=== PATIENT | female | born 1980 | race American Indian/Alaskan Native ===

== ENCOUNTER 2017-05-17 17:56 | Emergency (ER) | payer MEDICAID ==
[2017-05-17] MEDS ORDERED: XYLOCAINE 2% INFILTRATI ONE (22:00)
--- NOTE | 2017-05-17 22:14 | Emergency Department Report ---
- General Chief complaint: Skin/Abscess/Foreign Body Stated complaint: ABSCESS BIKINI LINE AREA Time Seen by Provider: 05/17/17 21:53 Source: patient Mode of arrival: Ambulatory Limitations: No Limitations - History of Present Illness complaint: abscess/boil -: Gradual (Since last . She thought it was an ingroin hair. Located at the left groin area) Associated symptoms: denies other symptoms Treatments Prior to Arrival: attempted to drain pus at - Related Data Home Medications Medication Instructions Recorded Confirmed Last Taken Ranitidine HCl [Ranitidine 300mg 1 tab PO DAILY 10/14/14 06/20/15 1 Week Ago Cap] ~01/16/15 Previous Rx's Medication Instructions Recorded Last Taken Type Ferrous Sulfate [Feosol 325 MG tab] 325 mg PO BID #60 tablet 01/25/15 Unknown Rx Labetalol [Normodyne TAB] 100 mg PO BID #60 tablet 01/25/15 Unknown Rx HYDROcodone/APAP 5-325 [[place] 1 each PO Q6HR PRN #30 tablet 06/20/15 Unknown Rx 5/325] Ibuprofen [Motrin 600 MG tab] 600 mg PO Q8H PRN #30 tablet 06/20/15 Unknown Rx Multivitamin with Iron 1 each PO DAILY #30 tablet 06/20/15 Unknown Rx [Multivitamins with Iron] Gentamicin 0.3% Ophth Soln 2 drops OP Q8H #1 bottle 11/27/15 Unknown Rx Sulfamethoxazole/Trimethoprim 1 each PO BID #20 tablet 05/17/17 Unknown Rx [Bactrim DS TAB] Allergies Allergy/AdvReac Type Severity Reaction Status Date / Time cephalexin monohydrate Allergy Rash Verified 01/10/15 16:42 [From Keflex] latex Allergy Itching Verified 10/26/14 07:16 Abscess Boil HPI - HPI Chief Complaint: Skin/Abscess/Foreign Body Stated Complaint: ABSCESS BIKINI LINE AREA Time Seen by Provider: 05/17/17 21:53 History: Yes Pain, Yes Purulent Drainage, Yes Previous History (small ones), No Fever, No Numbness, No Foreign Body, No Insect Bite Home Medications: Home Medications Medication Instructions Recorded Confirmed Last Taken Ranitidine HCl [Ranitidine 300mg 1 tab PO DAILY 10/14/14 06/20/15 1 Week Ago Cap] ~01/16/15 Previous Rx's Medication Instructions Recorded Last Taken Type Ferrous Sulfate [Feosol 325 MG tab] 325 mg PO BID #60 tablet 01/25/15 Unknown Rx Labetalol [Normodyne TAB] 100 mg PO BID #60 tablet 01/25/15 Unknown Rx HYDROcodone/APAP 5-325 [[place] 1 each PO Q6HR PRN #30 tablet 06/20/15 Unknown Rx 5/325] Ibuprofen [Motrin 600 MG tab] 600 mg PO Q8H PRN #30 tablet 06/20/15 Unknown Rx Multivitamin with Iron 1 each PO DAILY #30 tablet 06/20/15 Unknown Rx [Multivitamins with Iron] Gentamicin 0.3% Ophth Soln 2 drops OP Q8H #1 bottle 11/27/15 Unknown Rx Sulfamethoxazole/Trimethoprim 1 each PO BID #20 tablet 05/17/17 Unknown Rx [Bactrim DS TAB] Allergies/Adverse Reactions: Allergies Allergy/AdvReac Type Severity Reaction Status Date / Time cephalexin monohydrate Allergy Rash Verified 01/10/15 16:42 [From Keflex] latex Allergy Itching Verified 10/26/14 07:16 ED Review of Systems ROS: Stated complaint: ABSCESS BIKINI LINE AREA Other details as noted in HPI Constitutional: denies: chills, fever Eyes: denies: eye pain, eye discharge, vision change ENT: denies: ear pain, throat pain Respiratory: denies: cough, shortness of breath, wheezing Cardiovascular: denies: chest pain, palpitations Endocrine: no symptoms reported Gastrointestinal: denies: abdominal pain, nausea, diarrhea Genitourinary: denies: urgency, dysuria, discharge Musculoskeletal: denies: back pain, joint swelling, arthralgia Skin: as per HPI, lesions. denies: rash Neurological: denies: headache, weakness, paresthesias Psychiatric: denies: anxiety, depression Hematological/Lymphatic: denies: easy bleeding, easy bruising ED Past Medical Hx - Past Medical History Previous Medical History?: Yes Hx Hypertension: No Hx Heart Attack/AMI: No Hx Congestive Heart Failure: No Hx Diabetes: No Hx Deep Vein Thrombosis: No Hx Renal Disease: No Hx Sickle Cell Disease: No Hx Headaches / Migraines: Yes (MIGRAINES) Hx Seizures: No Hx Asthma: No Hx COPD: No Hx HIV: No - Surgical History Past Surgical History?: Yes Hx Cholecystectomy: Yes - Social History Smoking Status: Former Smoker Substance Use Type: None - Medications Home Medications: Home Medications Medication Instructions Recorded Confirmed Last Taken Type Ranitidine HCl [Ranitidine 300mg 1 tab PO DAILY 10/14/14 06/20/15 1 Week Ago History Cap] ~01/16/15 Ferrous Sulfate [Feosol 325 MG tab] 325 mg PO BID #60 tablet 01/25/15 06/20/15 Unknown Rx Labetalol [Normodyne TAB] 100 mg PO BID #60 tablet 01/25/15 06/20/15 Unknown Rx HYDROcodone/APAP 5-325 [[place] 1 each PO Q6HR PRN #30 tablet 06/20/15 Unknown Rx 5/325] Ibuprofen [Motrin 600 MG tab] 600 mg PO Q8H PRN #30 tablet 06/20/15 Unknown Rx Multivitamin with Iron 1 each PO DAILY #30 tablet 06/20/15 Unknown Rx [Multivitamins with Iron] Gentamicin 0.3% Ophth Soln 2 drops OP Q8H #1 bottle 11/27/15 Unknown Rx Sulfamethoxazole/Trimethoprim 1 each PO BID #20 tablet 05/17/17 Unknown Rx [Bactrim DS TAB] ED Physical Exam - General Limitations: No Limitations General appearance: alert, in no apparent distress - Head Head exam: Present: atraumatic, normocephalic - Eye Eye exam: Present: normal appearance - ENT ENT exam: Present: mucous membranes moist - Neck Neck exam: Present: normal inspection - Respiratory Respiratory exam: Present: normal lung sounds bilaterally. Absent: respiratory distress - Cardiovascular Cardiovascular Exam: Present: regular rate, normal rhythm. Absent: systolic murmur, diastolic murmur, rubs, gallop - GI/Abdominal GI/Abdominal exam: Present: soft, normal bowel sounds - Extremities Exam Extremities exam: Present: normal inspection - Back Exam Back exam: Present: normal inspection - Neurological Exam Neurological exam: Present: alert, oriented X3 - Psychiatric Psychiatric exam: Present: normal affect, normal mood - Skin Skin exam: Present: warm, dry, intact, normal color. Absent: rash - Expanded Skin Exam Expanded Type of lesion: Present: abscess (at the left groin, 3 cm induration, central head, tender, fluctuation sign positive.) ED Course Vital Signs 05/17/17 18:07 Temperature 98.6 F Pulse Rate 96 H Respiratory 16 Rate O2 Sat by Pulse 100 Oximetry - I & D Left Groin Site: left groin Blade Size: 11 I & D Procedure: betadine prep, sterile drapes applied, sterile dressing applied , no gauze wick placed Progress: Wound culture obtained, purulent greenish pus drained. Procedure well tolerated. Critical care attestation.: If time is entered above; I have spent that time in minutes in the direct care of this critically ill patient, excluding procedure time. ED Disposition Clinical Impression: Abscess Disposition: DC- TO HOME OR SELFCARE Is pt being admited?: No Does the pt Need Aspirin: No Condition: Good Instructions: Wound Infection (ED) Prescriptions: Sulfamethoxazole/Trimethoprim [Bactrim DS TAB] 1 each PO BID #20 tablet Referrals: JORI REINA MD [Primary Care Provider] - 3-5 Days Time of Disposition: 22:20
[2017-05-17 22:52] VITALS: BP 129/73
== END 2017-05-17 22:52 | disposition home or self-care (01) ==
LOC: ED 17:56
DX: L02.214 Cutaneous abscess of groin (principal); G43.909 Migraine, unspecified, not intractable, without status migrainosus; Z90.49 Acquired absence of other specified parts of digestive tract; Z87.891 Personal history of nicotine dependence; Z88.1 Allergy status to other antibiotic agents; Z91.040 Latex allergy status
CPT/HCPCS: 87116

== ENCOUNTER 2017-05-29 06:15 | Emergency (ER) | payer SELFPAY ==
[2017-05-29] MEDS ORDERED: DILAUDID ONE (06:45)
[2017-05-29] MEDS ORDERED: ZOFRAN ONE (06:49)
[2017-05-29] MEDS ORDERED: DILAUDID IV ONE ×2 (06:56→11:05)
[2017-05-29] MEDS ORDERED: NACL 0.9% 1000 ML 1,000 ML IV ONE (06:56)
[2017-05-29] MEDS ORDERED: SUBLIMAZE IV ONE (06:56)
[2017-05-29] MEDS ORDERED: ZOFRAN IV ONE (06:56)
[2017-05-29] MEDS ORDERED: SUBLIMAZE ONE (06:56)
--- NOTE | 2017-05-29 06:57 | Emergency Department Report ---
ED General Adult HPI - General Chief complaint: Abdominal Pain Stated complaint: VAGINAL BLEEDING Time Seen by Provider: 05/29/17 06:45 Source: patient, family, RN notes reviewed, old records reviewed Mode of arrival: Ambulatory Limitations: No Limitations - History of Present Illness Initial comments: This is a 37-year-old female. The patient has been previously evaluated by me in 2015 for ectopic . She reports that she is 8, para 4. Last menstrual period was mid-March. Surgical history includes right-sided ectopic removal in 2015, hernia repair, cholecystectomy. Patient presents to the ER with a complaint of diffuse abdominal pain. It is sharp. It increases with palpation. It decreases with rest. Patient reports she was seen at another hospital, [facility] and thinks that she was diagnosed with a "in the left tube, and inside the uterus." Patient denies in vitro fertilization, and patient further indicates that she does not have a private system specialist at this time. -: Gradual, hour(s) Location: abdomen Severity scale (0 -10): 10 Quality: stabbing, sharp Consistency: constant Improves with: medication Worsens with: movement Associated Symptoms: loss of appetite, malaise, nausea/vomiting, weakness. denies: chest pain, cough, headaches - Related Data Home Medications Medication Instructions Recorded Confirmed Last Taken Ranitidine HCl [Ranitidine 300mg 1 tab PO DAILY 10/14/14 06/20/15 1 Week Ago Cap] ~01/16/15 Previous Rx's Medication Instructions Recorded Last Taken Type Ferrous Sulfate [Feosol 325 MG tab] 325 mg PO BID #60 tablet 01/25/15 Unknown Rx Labetalol [Normodyne TAB] 100 mg PO BID #60 tablet 01/25/15 Unknown Rx HYDROcodone/APAP 5-325 [[place] 1 each PO Q6HR PRN #30 tablet 06/20/15 Unknown Rx 5/325] Ibuprofen [Motrin 600 MG tab] 600 mg PO Q8H PRN #30 tablet 06/20/15 Unknown Rx Multivitamin with Iron 1 each PO DAILY #30 tablet 06/20/15 Unknown Rx [Multivitamins with Iron] Gentamicin 0.3% Ophth Soln 2 drops OP Q8H #1 bottle 11/27/15 Unknown Rx Sulfamethoxazole/Trimethoprim 1 each PO BID #20 tablet 05/17/17 Unknown Rx [Bactrim DS TAB] Allergies Allergy/AdvReac Type Severity Reaction Status Date / Time cephalexin monohydrate Allergy Rash Verified 01/10/15 16:42 [From Keflex] latex Allergy Itching Verified 10/26/14 07:16 ED Review of Systems ROS: Stated complaint: VAGINAL BLEEDING Other details as noted in HPI Constitutional: denies: fever Eyes: denies: vision change ENT: denies: epistaxis Respiratory: denies: cough Cardiovascular: denies: chest pain Gastrointestinal: abdominal pain Genitourinary: denies: dysuria Musculoskeletal: as per HPI Skin: as per HPI Neurological: as per HPI, weakness Psychiatric: anxiety ED Past Medical Hx - Past Medical History Previous Medical History?: Yes Hx Hypertension: No Hx Heart Attack/AMI: No Hx Congestive Heart Failure: No Hx Diabetes: No Hx Deep Vein Thrombosis: No Hx Renal Disease: No Hx Sickle Cell Disease: No Hx Headaches / Migraines: Yes (MIGRAINES) Hx Seizures: No Hx Asthma: No Hx COPD: No Hx HIV: No - Surgical History Past Surgical History?: Yes Hx Cholecystectomy: Yes - Social History Smoking Status: Former Smoker Substance Use Type: None - Medications Home Medications: Home Medications Medication Instructions Recorded Confirmed Last Taken Type Ranitidine HCl [Ranitidine 300mg 1 tab PO DAILY 10/14/14 06/20/15 1 Week Ago History Cap] ~01/16/15 Ferrous Sulfate [Feosol 325 MG tab] 325 mg PO BID #60 tablet 01/25/15 06/20/15 Unknown Rx Labetalol [Normodyne TAB] 100 mg PO BID #60 tablet 01/25/15 06/20/15 Unknown Rx HYDROcodone/APAP 5-325 [[place] 1 each PO Q6HR PRN #30 tablet 06/20/15 Unknown Rx 5/325] Ibuprofen [Motrin 600 MG tab] 600 mg PO Q8H PRN #30 tablet 06/20/15 Unknown Rx Multivitamin with Iron 1 each PO DAILY #30 tablet 06/20/15 Unknown Rx [Multivitamins with Iron] Gentamicin 0.3% Ophth Soln 2 drops OP Q8H #1 bottle 11/27/15 Unknown Rx Sulfamethoxazole/Trimethoprim 1 each PO BID #20 tablet 05/17/17 Unknown Rx [Bactrim DS TAB] ED Physical Exam - General Limitations: No Limitations General appearance: alert, in distress - Head Head exam: Present: atraumatic, normocephalic - Eye Eye exam: Present: normal appearance, EOMI - ENT ENT exam: Present: normal exam, normal orophraynx, mucous membranes moist - Neck Neck exam: Present: normal inspection, full ROM - Respiratory Respiratory exam: Present: normal lung sounds bilaterally. Absent: respiratory distress - Cardiovascular Cardiovascular Exam: Present: normal rhythm, tachycardia, normal heart sounds. Absent: systolic murmur, diastolic murmur, rubs, gallop - GI/Abdominal GI/Abdominal exam: Present: soft, tenderness, normal bowel sounds. Absent: distended, rigid - Extremities Exam Extremities exam: Present: normal inspection, full ROM. Absent: calf tenderness - Back Exam Back exam: Present: normal inspection, full ROM. Absent: tenderness, CVA tenderness (R), paraspinal tenderness, vertebral tenderness - Neurological Exam Neurological exam: Present: alert, oriented X3, other (Extraocular movements intact. Tongue midline. No facial droop. Facial sensation intact to light touch in the V1, V2, V3 distribution bilaterally. 5 and 5 strength in 4 extremities.. Sensation is intact to light touch in 4 extremities.). Absent: motor sensory deficit - Psychiatric Psychiatric exam: Present: anxious - Skin Skin exam: Present: warm, dry, intact, normal color. Absent: rash ED Course Vital Signs 05/29/17 05/29/17 05/29/17 06:18 06:21 06:32 Temperature 98.1 F 98.1 F Pulse Rate 109 H 110 H Respiratory 20 22 Rate Blood Pressure 156/96 Blood Pressure 156/96 [Right] O2 Sat by Pulse 100 100 100 Oximetry 05/29/17 05/29/17 05/29/17 06:37 06:40 06:45 Temperature 97.7 F Pulse Rate 101 H Respiratory 18 22 Rate Blood Pressure 138/94 Blood Pressure 138/94 [Right] O2 Sat by Pulse 100 100 98 Oximetry 05/29/17 05/29/17 05/29/17 07:00 07:39 07:45 Temperature Pulse Rate 100 H 91 H 88 Respiratory 10 L 16 17 Rate Blood Pressure 138/94 138/94 138/94 Blood Pressure [Right] O2 Sat by Pulse 99 100 Oximetry 05/29/17 05/29/17 05/29/17 08:00 08:04 08:15 Temperature 98.0 F Pulse Rate 65 84 75 Respiratory 16 16 15 Rate Blood Pressure 137/74 137/74 Blood Pressure 132/75 [Right] O2 Sat by Pulse 99 100 100 Oximetry 05/29/17 05/29/17 05/29/17 08:30 08:45 09:01 Temperature Pulse Rate 87 79 63 Respiratory 14 12 14 Rate Blood Pressure 124/82 124/82 107/62 Blood Pressure [Right] O2 Sat by Pulse 99 99 99 Oximetry 05/29/17 05/29/17 05/29/17 09:15 09:30 09:45 Temperature Pulse Rate 67 76 78 Respiratory 16 14 14 Rate Blood Pressure 107/62 108/62 108/62 Blood Pressure [Right] O2 Sat by Pulse 99 99 100 Oximetry 05/29/17 05/29/17 05/29/17 10:00 10:15 10:31 Temperature Pulse Rate 73 81 73 Respiratory 12 11 L 16 Rate Blood Pressure 108/63 108/63 108/63 Blood Pressure [Right] O2 Sat by Pulse 99 100 99 Oximetry 05/29/17 11:43 Temperature Pulse Rate 70 Respiratory 15 Rate Blood Pressure Blood Pressure 108/63 [Right] O2 Sat by Pulse 100 Oximetry - Reevaluation(s) Reevaluation #1: 05/29/17 07:29 Differential diagnosis, including but not limited to: Peritonitis, ruptured ectopic , ovarian cyst Assessment and plan: 37-year-old female with history of ectopic , hemoperitoneum, with diffuse abdominal tenderness, concerning for recurrent ectopic . She is afebrile and hemodynamically stable with tachycardia. Bedside left upper quadrant and right upper quadrant ultrasound did not demonstrate obvious free fluid in the aforementioned compartments. An emergent gynecologic ultrasound is performed, we will attempt to obtain patient' s old medical records from prior facility, and I will discussed with gynecology. Patient made nothing by mouth, 2 large-bore IVs have been ordered, IV fluids have been ordered, in conjunction with pain medication and nausea medication. Reevaluation #2: 05/29/17 08:05 Ultrasound demonstrates an intrauterine , and a heterogeneous complex right-sided mass, 5.4 x 2.5 x 3.6 cm, may represent heterotopic . A small subchronic hemorrhage is identified as well. Stat gynecology consult has been placed, I am awaiting callback. Reevaluation #3: 05/29/17 09:27 Dr. Villegas has evaluated the patient, she is awaiting medical records from prior facility 05/29/17 10:35 Reevaluation #4: 05/29/17 09:52 Medical records from other hospital reviewed. Patient had a CT scan of the abdomen and pelvis with IV contrast, which demonstrated a normal appendix, and a 1.6 x 1.3 cm lesion in the right adnexa, suggestive of hemorrhagic ovarian cyst. In addition, the patient had a transvaginal ultrasound was which demonstrated an intrauterine , and a right-sided adnexal mass, with normal ovarian flow. Case is rediscussed with gynecology, Dr. Villegas, she states that heterotopic is very unlikely, and that hemorrhagic ovarian cyst is much more likely. In addition, it was documented that the patient was supposed to follow- up in 24 hours and did not do so. Reevaluation #5: 05/29/17 10:34 Patient seen in final consultation and conjunction with Dr. Villegas. She does not believe the patient's presentation requires either admission or laparoscopy. The patient's tenderness is improved and she is now able to tolerate liquid feeds. Dr. Villegas indicates the patient will follow-up with Dr. Shira Mcbride on Monday, in 2 days for repeat ultrasound and quantitative hCG. She has also written the patient for prescription for Percocet, Colace, Zofran. Extensive discussion was had with the patient regarding the importance of close outpatient follow-up. - Consultations Consultation #1: 05/29/17 08:21 Case is discussed with gynecology, Dr. Villegas, she is going to come by and see/ evaluate the patient. ED Medical Decision Making - Lab Data Result diagrams: 05/29/17 06:40 05/29/17 06:40 Vital Signs 05/29/17 05/29/17 05/29/17 06:18 06:21 06:32 Temperature 98.1 F 98.1 F Pulse Rate 109 H 110 H Respiratory 20 22 Rate Blood Pressure 156/96 Blood Pressure 156/96 [Right] O2 Sat by Pulse 100 100 100 Oximetry 05/29/17 05/29/17 05/29/17 06:37 06:40 06:45 Temperature 97.7 F Pulse Rate 101 H Respiratory 18 22 Rate Blood Pressure 138/94 Blood Pressure 138/94 [Right] O2 Sat by Pulse 100 100 98 Oximetry 05/29/17 07:00 Temperature Pulse Rate 100 H Respiratory 10 L Rate Blood Pressure 138/94 Blood Pressure [Right] O2 Sat by Pulse Oximetry Lab Results 05/29/17 05/29/17 Range/Units 06:40 06:40 WBC 9.1 (4.5-11.0) K/mm3 RBC 4.07 (3.65-5.03) M/mm3 Hgb 13.0 (10.1-14.3) gm/dl Hct 37.5 (30.3-42.9) % MCV 92 (79-97) fl MCH 32 (28-32) pg MCHC 35 H (30-34) % RDW 13.4 (13.2-15.2) % Plt Count 406 (140-440) K/mm3 Lymph % (Auto) 36.1 H (13.4-35.0) % [place] % (Auto) 5.3 (0.0-7.3) % Eos % (Auto) 0.2 (0.0-4.3) % Baso % (Auto) 0.2 (0.0-1.8) % Lymph # 3.3 (1.2-5.4) K/mm3 [place] # 0.5 (0.0-0.8) K/mm3 Eos # 0.0 (0.0-0.4) K/mm3 Baso # 0.0 (0.0-0.1) K/mm3 Seg Neutrophils % 58.2 (40.0-70.0) % Seg Neutrophils # 5.3 (1.8-7.7) K/mm3 PT 13.1 (12.2-14.9) Sec. INR 0.95 (0.87-1.13) APTT 36.9 H (24.2-36.6) Sec. Critical care attestation.: If time is entered above; I have spent that time in minutes in the direct care of this critically ill patient, excluding procedure time. ED Disposition Clinical Impression: Acute abdominal pain Disposition: DC- TO HOME OR SELFCARE Is pt being admited?: No Does the pt Need Aspirin: No Condition: Stable Instructions: Abdominal Pain (ED) Additional Instructions: Take the medications as directed/prescribed. Follow up with Dr. Shivam Mcbride, first thing Monday morning, in 2 days, for repeat ultrasound and blood tests. Return to the ER right away with new pain, worsening pain, migration of pain, fevers, chills, lethargy, irritability, productive vomiting, confusion, change in mental status, inability tolerate liquid feeds, loss of consciousness. Referrals: PRIMARY CARE, [Primary Care Provider] - 3-5 Days SHIRA MCBRIDE MD [Staff Physician] - 3-5 Days Forms: Work/School Release Form(ED)
[2017-05-29 07:06] LABS: Basophils % (Auto) 0.2 % (0.0-1.8); Eosinophils % (Auto) 0.2 % (0.0-4.3); Hematocrit 37.5 % (30.3-42.9); Mean Corpuscular HGB Conc 35 % (30-34); Mean Corpuscular Hemoglobin 32 pg (28-32); Mean Corpuscular Volume 92 fl (79-97); Platelet Count 406 K/mm3 (140-440); Red Blood Count 4.07 M/mm3 (3.65-5.03); Red Cell Distribution Width 13.4 % (13.2-15.2); White Blood Count 9.1 K/mm3 (4.5-11.0)
[2017-05-29 07:16] LABS: INR 0.95 (0.87-1.13)
[2017-05-29 07:17] LABS: Partial Thromboplastin Time 36.9 Sec. (24.2-36.6)
[2017-05-29 07:34] LABS: Alanine Aminotransferase 9 units/L (7-56); Albumin 4.4 g/dL (3.9-5); Albumin/Globulin Ratio 1.3 %; Alkaline Phosphatase 45 units/L (35-129); Anion Gap 22 mmol/L; BUN/Creatinine Ratio 20; Blood Urea Nitrogen 12 mg/dL (7-17); Calcium 9.4 mg/dL (8.4-10.2); Carbon Dioxide 20 mmol/L (22-30); Chloride 99.9 mmol/L (98-107); Glucose 93 mg/dL (65-100); Lipase 34 units/L (13-60); Potassium 3.8 mmol/L (3.6-5.0); Sodium 138 mmol/L (137-145); Total Protein 7.9 g/dL (6.3-8.2)
--- NOTE | 2017-05-29 07:51 | Ultrasound Report ---
ULTRASOUND OB LESS THAN 14 WEEKS FETUS ULTRASOUND OB TRANSVAGINAL HISTORY: Abdominal pain during , 6 weeks gestation, history of heterotopic at outlying facility.. COMPARISON: No relevant comparisons at this facility. TECHNIQUE: Transabdominal and transvaginal ultrasound with color doppler interrogation. FINDINGS: Uterus: The uterus measures 7.6 x 5.2 x 4.5 cm. No uterine mass is appreciated. The uterus is anteverted. The cervix is unremarkable. Endometrium: An intrauterine gestational sac containing a pole and yolk sac is identified. Heart rate measures 150 beats per minute. [place]-rump length measures 1.1 cm which correlates with a 7 week, 2 day . A small subchorionic hemorrhage is identified. Right ovary: 2.0 x 1.9 x 1.8 cm. Adjacent to the right ovary, there is a heterogeneous complex appearing right adnexal mass measuring 5.4 x 2.5 x 3.6 cm. There is no discrete pole or heart tones in this area. The etiology of this is unclear. This could represent a heterotopic . Left ovary: 2.6 x 1.7 x 2.2 cm. No significant abnormality. No pelvic fluid or mass is identified. Normal color doppler interrogation. IMPRESSION: A viable intrauterine is identified as described above. There is a complex masslike lesion in the vicinity of the right fallopian tubules although no discrete gestational sac is demonstrated. A heterotopic cannot be excluded. Please correlate with the clinical presentation of the patient. Small subchorionic hemorrhage.
[2017-05-29 08:33] LABS: Bilirubin,Urine NEG (Negative); Blood,Urine MOD (Negative); Ketones,Urine NEG (Negative); Leukocyte Esterase,Urine MOD (Negative); Mucus,Urine FEW /HPF; Nitrite,Urine NEG (Negative); Protein,Urine <15 mg/dL mg/dL (Negative); Urobilinogen,Urine < 2.0 mg/dL (<2.0)
[2017-05-29] MEDS ORDERED: ROXICODONE PO ONE (09:51)
[2017-05-29] MEDS ORDERED: PERCOCET 5/325 PO ONE (09:52)
[2017-05-29 10:37] VITALS: BP 108/63
--- NOTE | 2017-05-29 12:07 | History and Physical Report ---
History of Present Illness Date of examination: 05/29/17 Date of admission: 05/27/17 Chief complaint: r sided abdominal pain History of present illness: This is a 37 yo LMP Mar or Apr unsure. Patient came in for abdominal pain in which she was seen at [facility] for same problem 5 days ago. She wasevaluated there and dx with IUP and ovarain cyst on the right. She states pain is 7/10 and was released home but did not take meds and didnot have Percocet filled as she has had prior meds and took only 2 tabs one on Monday and one on Mon. 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 She has some nausea and vomited several times. She denies any fever nor chills and no vaginal bleeding. This is a wanted . Past History Past Medical History: hypertension, GERD Past Surgical History: cholecystectomy, BATTERY CONTAINER FINISHING HAND/uterine surgery, other ( herniorophay ) BATTERY CONTAINER FINISHING HAND History: herpes Family/Genetic History: none Social history: no significant social history, . denies: smoking, alcohol abuse, prescription drug abuse - Obstetrical History : 6 Medications and Allergies Allergies Allergy/AdvReac Type Severity Reaction Status Date / Time cephalexin monohydrate Allergy Rash Verified 01/10/15 16:42 [From Keflex] latex Allergy Itching Verified 10/26/14 07:16 Home Medications Medication Instructions Recorded Confirmed Last Taken Type Ranitidine HCl [Ranitidine 300mg 1 tab PO DAILY 10/14/14 06/20/15 1 Week Ago History Cap] ~01/16/15 Ferrous Sulfate [Feosol 325 MG tab] 325 mg PO BID #60 tablet 01/25/15 06/20/15 Unknown Rx Labetalol [Normodyne TAB] 100 mg PO BID #60 tablet 01/25/15 06/20/15 Unknown Rx HYDROcodone/APAP 5-325 [[place] 1 each PO Q6HR PRN #30 tablet 06/20/15 Unknown Rx 5/325] Ibuprofen [Motrin 600 MG tab] 600 mg PO Q8H PRN #30 tablet 06/20/15 Unknown Rx Multivitamin with Iron 1 each PO DAILY #30 tablet 06/20/15 Unknown Rx [Multivitamins with Iron] Gentamicin 0.3% Ophth Soln 2 drops OP Q8H #1 bottle 11/27/15 Unknown Rx Sulfamethoxazole/Trimethoprim 1 each PO BID #20 tablet 05/17/17 Unknown Rx [Bactrim DS TAB] Review of Systems All systems: negative Gastrointestinal: abdominal pain, nausea Genitourinary: pelvic pain - Vital Signs Vital signs: Vital Signs Temp Pulse Resp BP Pulse Ox 98.1 F 109 H 20 156/96 100 05/29/17 06:18 05/29/17 06:18 05/29/17 06:18 05/29/17 06:18 05/29/17 06:18 Temp Pulse Resp BP Pulse Ox 98.0 F 70 15 108/63 100 05/29/17 08:04 05/29/17 11:43 05/29/17 11:43 05/29/17 11:43 05/29/17 11:43 - Physical Exam Breasts: Positive: deferred Cardiovascular: Regular rate, Normal S1 Lungs: Positive: Clear to auscultation, Normal air movement Abdomen: Positive: normal appearance, soft, distention, tenderness (right), normal bowel sounds. Negative: guarding, mass Vulva: both: normal Vagina: Positive: normal moisture Cervix: Negative: lesion Uterus: Positive: normal size, normal contour Adnexa: right: tenderness Anus/Rectum: Positive: normal perianal skin Extremities: Positive: normal Deep Tendon Reflex Grade: Normal +2 Results Result Diagrams: 05/29/17 06:40 05/29/17 06:40 Abnormal lab results 05/29/17 05/29/17 05/29/17 Range/Units 06:40 06:40 06:40 MCHC 35 H (30-34) % Lymph % (Auto) 36.1 H (13.4-35.0) % APTT (24.2-36.6) Sec. Carbon Dioxide 20 L (22-30) mmol/L Creatinine 0.6 L (0.7-1.2) mg/dL HCG, Quant 72103 H (0-4) mIU/mL Urine WBC (Auto) (0.0-6.0) /HPF 05/29/17 05/29/17 Range/Units 06:40 07:51 MCHC (30-34) % Lymph % (Auto) (13.4-35.0) % APTT 36.9 H (24.2-36.6) Sec. Carbon Dioxide (22-30) mmol/L Creatinine (0.7-1.2) mg/dL HCG, Quant (0-4) mIU/mL Urine WBC (Auto) 27.0 H (0.0-6.0) /HPF All other labs normal. Assessment and Plan A/P HD#! ABdominal pain , IUP 7 weeks Right ovaraian hemorrhagic cyst ( doubt heterotpic ) reviewed US today and US from [facility] including CT scan Wanted Stable hemodynamically ( wbc, h/h, clinically ) recommended following closely appt scheudled on Mon with Dr. Mcbride ( previously had appt for next week) d/c home with percocet, colace and zofran any changes which include but not limited to bleeding, pain despite narcotics, or fever, chills, vomited [facility] Patient counseled for 30min and agree with plan Discused importance ad imperativeness to f/u
== END 2017-05-29 11:43 | disposition home or self-care (01) ==
LOC: ED 06:15
DX: O26.891 Other specified pregnancy related conditions, first trimester (principal); R10.84 Generalized abdominal pain; G43.909 Migraine, unspecified, not intractable, without status migrainosus; Z3A.01 Less than 8 weeks gestation of pregnancy; Z87.891 Personal history of nicotine dependence; Z90.49 Acquired absence of other specified parts of digestive tract; Z91.040 Latex allergy status; Z88.1 Allergy status to other antibiotic agents
CPT/HCPCS: 36415; 76801; 76817; 80053; 81001; 83690; 84702; 84703; 85025; 85610; 85730; 86850; 86900; 86901; 96361; 96374; 96375; 96376; 99284; J1170; J2405; J3010; J7030

== ENCOUNTER 2017-05-31 10:31 | Inpatient (IN) | payer MEDICAID ==
[2017-05-31] MEDS ORDERED: PERCOCET 5/325 PO PRN (11:09)
[2017-05-31] MEDS ORDERED: ZOFRAN IV PRN (11:09)
[2017-05-31 11:56] LABS: Eosinophils % (Auto) 0.1 % (0.0-4.3); Hematocrit 36.9 % (30.3-42.9); Hemoglobin 12.8 gm/dl (10.1-14.3); Mean Corpuscular HGB Conc 35 % (30-34); Mean Corpuscular Hemoglobin 32 pg (28-32); Mean Corpuscular Volume 92 fl (79-97); Platelet Count 376 K/mm3 (140-440); Red Blood Count 4.01 M/mm3 (3.65-5.03); Red Cell Distribution Width 13.2 % (13.2-15.2); White Blood Count 8.3 K/mm3 (4.5-11.0)
[2017-05-31] MEDS ORDERED: D5LR W/KCL 20 MEQ 20 MEQ/1,000 ML BAG IV SCH (12:00)
[2017-05-31] MEDS ORDERED: D5LR 1,000 ML IV SCH (12:00)
[2017-05-31] MEDS: REGLAN IV SCH ×2 (12:11→18:00)
[2017-05-31] MEDS: D5LR 1,000 ML IV SCH ×2 (12:11→17:12)
[2017-05-31 12:16] LABS: Amylase 63 units/L (27-131); Lipase 25 units/L (13-60)
[2017-05-31] MEDS: PHENERGAN PR SCH ×2 (12:27→18:00)
[2017-05-31] MEDS: MORPHINE IV PRN ×2 (12:28→23:04)
--- NOTE | 2017-05-31 13:03 | History and Physical Report ---
History of Present Illness Date of examination: 06/01/17 Date of admission: 05/31/17 10:58 Chief complaint: pelvic pain, right ovarian cyst, History of present illness: Pt is a 37 year old female LMP unsure at 7 wks by ultrasound this week presents with severe intermittent pelvic pain and a 5 cm complex right ovarian cyst. She also has a h/o hyperemesis and is experiencing frequent nausea and vomiting. She attempted to establish care today at [facility]. Past History Past Medical History: hypertension, GERD Past Surgical History: cholecystectomy, AMBULANCE OFFICER/uterine surgery (right salpingectomy in 2015, umbilical hernia repair ) AMBULANCE OFFICER History: herpes Social history: no significant social history - Obstetrical History : 7 Para: 4 Hx # Term Pregnancies: 4 Number of Pregnancies: 0 Spontaneous Abortions: 2 Induced : 0 Number of Living Children: 4 Medications and Allergies Allergies Allergy/AdvReac Type Severity Reaction Status Date / Time cephalexin monohydrate Allergy Rash Verified 01/10/15 16:42 [From Keflex] latex Allergy Itching Verified 10/26/14 07:16 Home Medications Medication Instructions Recorded Confirmed Last Taken Type Ranitidine HCl [Ranitidine 300mg 1 tab PO DAILY 10/14/14 05/31/17 1 Week Ago History Cap] ~01/16/15 Ferrous Sulfate [Feosol 325 MG tab] 325 mg PO BID #60 tablet 01/25/15 05/31/17 Unknown Rx Labetalol [Normodyne TAB] 100 mg PO BID #60 tablet 01/25/15 05/31/17 Unknown Rx HYDROcodone/APAP 5-325 [[place] 1 each PO Q6HR PRN #30 tablet 06/20/15 05/31/17 Unknown Rx 5/325] Ibuprofen [Motrin 600 MG tab] 600 mg PO Q8H PRN #30 tablet 06/20/15 05/31/17 Unknown Rx Multivitamin with Iron 1 each PO DAILY #30 tablet 06/20/15 05/31/17 Unknown Rx [Multivitamins with Iron] Gentamicin 0.3% Ophth Soln 2 drops OP Q8H #1 bottle 11/27/15 05/31/17 Unknown Rx Sulfamethoxazole/Trimethoprim 1 each PO BID #20 tablet 05/17/17 05/31/17 Unknown Rx [Bactrim DS TAB] Active Meds: Active Medications Famotidine (Pepcid) 20 mg IV BID [facility]IFF Dextrose/Lactated Ringer's (D5lr) 1,000 mls @ 500 mls/hr IV DIRECT CLIFF Stop: 06/01/17 13:59 Last Admin: 05/31/17 12:11 Dose: 500 mls/hr Dextrose/Lactated Ringer's (D5lr) 1,000 mls @ 150 mls/hr IV DIRECT CLIFF Potassium Cl/Dextrose/Lact Ringer's (D5lr W/Kcl 20 Meq) 20 meq in 1,000 mls @ 150 mls/hr IV DIRECT [facility] Metoclopramide HCl (Reglan) 10 mg IV Q6H [facility] Last Admin: 05/31/17 12:11 Dose: 10 mg Morphine Sulfate (Morphine) 2 mg IV Q4H PRN PRN Reason: Pain, Moderate (4-6) Last Admin: 05/31/17 12:28 Dose: 2 mg Multivitamins/Iron/Calcium ( Vitamin) 1 each PO QDAY [facility] Ondansetron HCl (Zofran) 4 mg IV Q6H PRN PRN Reason: N/V unrelieved by Reglan Ondansetron HCl (Zofran) 4 mg IV Q4H PRN PRN Reason: Nausea And Vomiting Oxycodone/Acetaminophen (Percocet 5/325) 2 tab PO Q4H PRN PRN Reason: Pain, Moderate (4-6) Promethazine HCl (Phenergan) [address] Q6H [facility] Last Admin: 05/31/17 12:27 Dose: 25 mg Review of Systems All systems: negative Gastrointestinal: nausea, vomiting - Physical Exam Breasts: Positive: deferred Cardiovascular: Regular rate Lungs: Positive: Clear to auscultation Abdomen: Positive: soft, tenderness. Negative: distention (RLQ) Extremities: Positive: normal Results Result Diagrams: 05/31/17 11:29 05/31/17 11:29 Abnormal lab results 05/31/17 05/31/17 Range/Units 11:29 11:29 MCHC 35 H (30-34) % HCG, Quant 02001 H (0-4) mIU/mL All other labs normal. Assessment and Plan A: IUP at 7 wks Right ovarian cyst Pelvic pain GERD Hyperemesis P: IV antiemetics and IV pain medication. If pain not significantly improved, consider laparoscopy.
[2017-05-31 14:06] LABS: Anion Gap 24 mmol/L; BUN/Creatinine Ratio 16; Blood Urea Nitrogen 8 mg/dL (7-17); Calcium 9.3 mg/dL (8.4-10.2); Carbon Dioxide 20 mmol/L (22-30); Chloride 97.4 mmol/L (98-107); Glucose 90 mg/dL (65-100); Potassium 3.7 mmol/L (3.6-5.0); Sodium 138 mmol/L (137-145)
--- NOTE | 2017-05-31 14:50 | Ultrasound Report ---
ULTRASOUND OB LESS THAN 14 WEEKS ULTRASOUND OB TRANSVAGINAL HISTORY: 7 week , right ovarian cyst. COMPARISON: 05/29/17. TECHNIQUE: Transabdominal and transvaginal ultrasound with color doppler interrogation. FINDINGS: No change is demonstrated in the complex mass like lesion in the right adnexa since the exam 2 days ago. The etiology of this remains unclear. A heterotopic cannot be excluded in An intrauterine is again identified with heart rate measuring 161 beats per minute. The ovaries are unremarkable. Small to medium free fluid in the cul-de-sac is again noted. IMPRESSION: No change.
[2017-05-31 18:02] LABS: Bilirubin,Urine NEG (Negative); Blood,Urine NEG (Negative); Ketones,Urine NEG (Negative); Leukocyte Esterase,Urine MOD (Negative); Mucus,Urine FEW /HPF; Nitrite,Urine NEG (Negative); Protein,Urine <15 mg/dL mg/dL (Negative)
[2017-05-31] MEDS: PEPCID IV SCH (21:45)
[2017-05-31] MEDS: ZOFRAN IV PRN (21:45)
[2017-06-01] MEDS: REGLAN IV SCH ×4 (00:15→18:43)
[2017-06-01] MEDS: PHENERGAN PR SCH ×4 (00:18→19:31)
[2017-06-01] MEDS: MORPHINE IV PRN ×4 (03:43→18:43)
[2017-06-01] MEDS: ZOFRAN IV PRN (03:44)
--- NOTE | 2017-06-01 09:01 | Progress Note ---
Assessment and Plan A: IUP at 7 wks Right ovarian cyst Pelvic pain, concern for ovarian torsion GERD Hyperemesis P: Proceed with laparoscopic right ovarian cystectomy, possible Right salpingo- oophorectomy, possible laparotomy and other indicated procedures. Subjective - Subjective Date of service: 06/01/17 Principal diagnosis: IUP at 7 wks, pevic pain, right ovarian cyst Interval history: Pt with episodic severe pain that causes writhing. Nausea somewhat improved on antiemetics. Patient reports: voiding normally, pain poorly controlled, ambulating normally, nauseated, no appetite normal Objective - Vital Signs Latest vital signs: Vital Signs Temp Pulse Resp BP BP Pulse Ox 06/01/17 04:15 98.5 F 70 18 99/52 06/01/17 00:00 98.0 F 79 20 102/65 05/31/17 20:00 98.2 F 92 H 20 101/62 05/31/17 17:00 98.7 F 87 20 126/78 100 05/31/17 12:00 99.0 F 77 18 125/78 100 Intake and Output 05/31/17 06/01/17 06/01/17 22:59 06:59 14:59 Intake Total 360 1240 Output Total 730 500 Balance -370 740 Intake: IV 1000 D5lr 1,000 ml @ 500 mls/ 1000 hr IV DIRECT [facility] Rx#: [id number] Oral 360 240 Output: Urine 600 400 Void 600 400 Emesis 130 100 Other: Total, Intake Amount 240 240 Total, Output Amount 600 200 Voiding Method Toilet Weight 61.689 kg - Exam Breasts: Present: deferred Cardiovascular: Present: Regular rate Lungs: Present: Clear to auscultation Abdomen: Present: soft, tenderness - Labs Labs: Abnormal lab results 05/31/17 05/31/17 05/31/17 Range/Units 11:29 11:29 11:29 MCHC 35 H (30-34) % Chloride 97.4 L (98-107) mmol/L Carbon Dioxide 20 L (22-30) mmol/L Creatinine 0.5 L (0.7-1.2) mg/dL HCG, Quant 80728 H (0-4) mIU/mL Urine WBC (Auto) (0.0-6.0) /HPF 05/31/17 Range/Units Unknown MCHC (30-34) % Chloride (98-107) mmol/L Carbon Dioxide (22-30) mmol/L Creatinine (0.7-1.2) mg/dL HCG, Quant (0-4) mIU/mL Urine WBC (Auto) 74.0 H (0.0-6.0) /HPF
[2017-06-01] MEDS: PEPCID IV SCH ×2 (09:41→21:43)
[2017-06-01] MEDS: PRENATAL VITAMIN PO SCH (10:14)
[2017-06-01] MEDS ORDERED: GARAMYCIN IV SCH (11:00)
[2017-06-01] MEDS ORDERED: GARAMYCIN/NS 80 MG/100 ML 100 ML IV NR (11:00)
[2017-06-01] MEDS ORDERED: CLEOCIN 600 MG/50 mL 600 MG/50 ML BAG IV NR (11:00)
[2017-06-01] MEDS ORDERED: MARCAINE 0.5% 30 ML INFILTRATI ONE (12:05)
--- NOTE | 2017-06-01 12:32 | Anesthesia Consultation ---
Anesthesia Consult and Med Hx Date of service: 06/01/17 - Airway Anesthetic Teeth Evaluation: Good (uneven teeth) ROM Head & Neck: Adequate Mental/Hyoid Distance: Adequate Mallampati Class: Class II Intubation Access Assessment: Probably Good - Pre-Operative Health Status ASA Pre-Surgery Classification: ASA2 Proposed Anesthetic Plan: General - Pulmonary Hx Smoking: Yes (CIGARETTES 6 CIGS PD FOR 5 YRS) Hx Asthma: No COPD: No Hx Pneumonia: No Hx Sleep Apnea: No - Cardiovascular System Hx Hypertension: Yes (no meds, has been low resently) Hx Coronary Artery Disease: No Hx Heart Attack/AMI: No Hx Angina: No - Central Nervous System Hx Seizures: No Hx Psychiatric Problems: No - Endocrine Hx Renal Disease: No Hx End Stage Renal Disease: No Hx Hypothyroidism: No Hx Hyperthyroidism: No - Hematic Hx Anemia: No Hx Sickle Cell Disease: No - Other Systems Hx Alcohol Use: No - Additional Comments Anesthesia Medical History Comments: 7 week , ovarian mass
--- NOTE | 2017-06-01 12:32 | Anesthesia Day of Surgery ---
Anesthesia Day of Surgery - Day of Surgery Patient Examined: Yes Patient H&P Reviewed: Yes Patient is NPO: Yes
[2017-06-01] MEDS ORDERED: SUBLIMAZE ONE (12:37)
[2017-06-01] MEDS ORDERED: DIPRIVAN 10 MG/ML IV ONE (12:37)
[2017-06-01] MEDS: LACTATED RINGERS 1,000 ML IV SCH ×2 (12:44→20:06)
[2017-06-01] MEDS ORDERED: ZOFRAN ONE (13:25)
[2017-06-01] MEDS ORDERED: QUELICIN ONE (13:25)
[2017-06-01] MEDS ORDERED: XYLOCAINE MPF 2% ONE (13:25)
[2017-06-01] MEDS ORDERED: REGLAN ONE (13:25)
[2017-06-01] MEDS ORDERED: ZEMURON IV ONE (13:26)
[2017-06-01] MEDS ORDERED: DILAUDID IV PRN ×2 (14:00→15:05)
[2017-06-01] MEDS ORDERED: DILAUDID ONE ×2 (14:16→14:59)
[2017-06-01] MEDS ORDERED: MARCAINE 0.5% INFILTRATI ONE (14:20)
[2017-06-01] MEDS ORDERED: NACL 0.9% IR ONE ×2 (14:21)
[2017-06-01] MEDS ORDERED: TORADOL ONE (14:30)
[2017-06-01] MEDS ORDERED: PROAIR IH ONE (14:37)
--- NOTE | 2017-06-01 14:52 | Operative Report ---
Operative Report Operative Report: Date of procedure: June 01, 2017 Preoperative diagnosis: 1) IUP at 7 wks 2) Severe Pelvic Pain 3) Complex Right Ovarian Cyst Postoperative diagnosis: Same 4) Suspected heterotopic with right ectopic Procedure: 1) Laparoscopic partial right salpingectomy and excision of mass 2) Evacuation of hemoperitoneum Surgeon: Shira Mcbride M.D. Asbestos Remover: Ofelia Arango MD Anesthesia: General endotracheal anesthesia Findings: 1) Small anteverted uterus 2) Hemoperitoneum upon abdominal entry 3) Complex bleeding mass within the right fallopian tube 4) No apparent involvement of the right ovary 5) Normal appearing uterus and and left fallopian tube and ovary 6) Adhesive disease in the LLQ Estimated blood loss: 300 mL (including hemoperitoneum) IV fluid: 1000 mL Urine output: 300 mL clear at the end of the procedure Specimens: partial right fallopian tube and mass and blood clot to pathology Complications: None. Counts correct 2 Disposition: Stable to PACU Indications for procedure: Pt is a 37 year old female LMP unsure at 7 wks with an IUP by ultrasound this week who presents with severe intermittent pelvic pain and a 5 cm complex right ovarian cyst with minimal improvement with conservative measures. Pt is aware that she may have a spontaneous after this procedure or require right salpingo-oophorectomy and she still desires to proceed. Operation in detail: After the risks, benefits, alternatives and complications of the procedure were explained to the patient, she gave informed consent for the procedure. She was subsequently taken to the operating room with her IV noted to be running and placed in the dorsal supine position with sequential compression devices functioning. General endotracheal anesthesia was then induced without difficulty. The patient was then placed in dorsal lithotomy position and prepped and draped in normal sterile fashion. A timeout was then performed. An exam under anesthesia was then performed yielding a small anteverted uterus. A dela cruz catheter was then placed. An open sided speculum was placed into the vagina for visualization of the cervix. A moist sponge stick was placed in the posterior fornix of the vagina. The surgeon's gloves were then changed. Attention was then turned to entry into the abdominal cavity. A 5 mm incision was made 4 cm above the umbilicus with an 11 blade. The skin was grasped on either side of the umbilicus and tented up. The Veres needle was placed into the peritoneal cavity, confirmed with a saline drop test. The abdomen was then insufflated with CO2 gas to a pressure of 15 mmHg. A 5 mm Visiport trocar was then placed. An anatomic survey was then performed with findings as indicated above. A second trocar site was created 4 cm superior to the pubic symphysis in the midline measuring 5 mm. A 5 mm trocar was placed under direct visualization. A thirs incision was made in the right lower quadrant. An 8 mm trocar was then placed under direct visualization. The patient was placed in Trendelenburg position. At this time, a 5 mm Ligasure was used to excise the mass in the right fallopian tube. An Endo Catch specimen pouch was used to remove the mass through the 8mm trocar site and was sent to pathology. The abdomen was then copiously irrigated. A large organized clot was noted in the posterior cul-de-sac. It was grasped, removed from the abdomen with an Endo Catch specimen pouch and sent to pathology. At this time, all instruments were removed from the abdominal cavity. Hemostasis was noted. A Roni-Llanes device with 0 Vicryl was used to reapproximate the 8 mm fascial incision. The pneumoperitoneum was released and all trocars were removed atraumatically. The three incisions were then infiltrated with quarter percent Marcaine. The incisions were then reapproximated with 4-0 Vicryl in a subcuticular fashion. Each incision was then covered with steri strips, a piece of telfa and a tegaderm. The spongestick was removed from the vagina atraumatically. The dela cruz catheter was then removed. At this time the procedure was ended. The patient was placed into the dorsal supine position and extubated without difficulty. She tolerated the procedure well and was subsequently taken to the PACU in stable condition. All instrument, needle and lap counts were correct 2. An ultrasound will be performed in the PACU to confirm viability after the procedure.
[2017-06-01] MEDS: DILAUDID IV PRN ×2 (14:58→15:43)
--- NOTE | 2017-06-01 15:07 | Post Anesthesia Evaluation ---
- Post Anesthesia Evaluation Patient Participated: Yes Airway Patent: Yes Stable Respiratory Function: Yes Nausea/Vomiting: No Temp > 96.8F: Yes Pain Manageable: Yes Adequeate Hydration: Yes Anesthesia Complications: No
[2017-06-01] MEDS ORDERED: VASELINE LIP THERAPY TP PRN (20:11)
[2017-06-01] MEDS: PERCOCET 5/325 PO PRN (21:47)
[2017-06-02] MEDS: REGLAN IV SCH ×3 (00:01→12:00)
[2017-06-02] MEDS: PHENERGAN PR SCH ×2 (00:03→07:08)
[2017-06-02] MEDS: PERCOCET 5/325 PO PRN ×2 (04:16→12:00)
[2017-06-02] MEDS ORDERED: PERCOCET 5/325 PO PRN (05:39)
[2017-06-02] MEDS: MORPHINE IV PRN (07:05)
--- NOTE | 2017-06-02 07:46 | Ultrasound Report ---
ULTRASOUND OB LIMITED History: Intrauterine at 7 weeks, status post laparoscopic surgery Technique: Transabdominal ultrasound with Doppler interrogation. Findings: Targeted, limited OB ultrasound was requested by the ordering physician to document heart rate after surgery. The images demonstrate a heart rate of 130 beats per minute. Impression: Viable fetus with heart rate measuring 130 beats per minute.
--- NOTE | 2017-06-02 08:50 | Progress Note ---
Assessment and Plan A: HD#3 after admission for pelvic pain, nausea and vomiting, right ovarian cyst at 7 wks POD#1 s/p suspected laparoscopic right ovarian cystectomy, partial right salpingectomy and evacuation of hemoperitoneum P: Routine postoperative care. Anticipate discharge later today. Subjective - Subjective Date of service: 06/02/17 Principal diagnosis: IUP at 7 wks, pevic pain, right ovarian cyst Interval history: Pt feels much better but had suboptimal pain control overnight. Her nausea is drastically improved this morning. She is voiding and has passed flatus. Patient reports: appetite normal, flatus, pain poorly controlled, ambulating normally, no bowel movement, no nauseated Objective - Vital Signs Latest vital signs: Vital Signs Temp Pulse Resp BP BP Pulse Ox 06/02/17 07:05 18 06/02/17 05:48 18 06/02/17 05:16 18 06/02/17 04:16 18 06/02/17 04:05 98.2 F 94 H 20 135/69 06/02/17 00:00 98.0 F 84 18 127/62 06/01/17 21:47 18 06/01/17 20:00 98.4 F 83 18 93/60 06/01/17 16:30 98 F 80 11 L 110/55 97 06/01/17 16:13 12 06/01/17 16:00 81 13 105/64 96 06/01/17 15:45 83 13 119/69 96 06/01/17 15:43 14 06/01/17 15:30 74 11 L 120/59 100 06/01/17 15:28 12 06/01/17 15:15 79 10 L 120/68 100 06/01/17 15:00 76 13 128/61 100 06/01/17 14:58 18 06/01/17 14:50 84 12 130/76 100 06/01/17 14:45 95 H 20 141/85 100 06/01/17 14:40 97.6 F 108 H 20 133/81 100 06/01/17 11:42 97.8 F 62 18 111/67 99 Intake and Output 06/01/17 06/02/17 06/02/17 22:59 06:59 14:59 Intake Total 1256.667 240 Output Total 300 Balance 956.667 240 Intake: IV 1136.667 Lactated Ringers 1,000 ml 736.667 @ 100 mls/hr IV DIRECT [facility] Rx#:[id number] Oral 120 240 Output: Urine 300 Void 300 Other: Total, Intake Amount 120 240 Total, Output Amount 300 Voiding Method Toilet # Voids Void 400 - Exam Breasts: Present: deferred Cardiovascular: Present: Regular rate Lungs: Present: Clear to auscultation Abdomen: Present: soft, distention (mild ), abnormal bowel sounds (hypoactive ) Extremities: Present: normal Incision: Present: dressed
--- NOTE | 2017-06-02 09:33 | Discharge Summary ---
Providers - Providers Date of Admission: 05/31/17 10:58 Date of discharge: 06/02/17 Attending physician: FCO RAUSCH 05/31/17 11:09 Consult to Dietitian/Nutrition [CONS] Routine Physician Instructions: Reason For Exam: Reason for Consult: hyper grav Reason for Consult: Diet education Primary care physician: [facility] ATTENDANT Hospitalization Reason for admission: other (pelvic pain, nausea, ovarian cyst, 7 wks ) Procedure details: Please see operative note. Laparoscopic right ovarian cystectomy, partial right salpingectomy, and evacuation of hemoperitoneum Incision: intact Other procedures: none complications: none Discharge diagnosis: other (7 wks , right ovarian cyst, pelvic pain, nausea and vomiting ) Hospital course: The patient was directly admitted from the office at 7 wks , with nausea , vomiting and severe pelvic pain with known 5 cm right ovarian complex cyst. A trial of conservative measures with IV pain medication and antiemetics were attempted with little improvement. On HD#1 the patient underwent laparoscopic right ovarian cystectomy, partial right salpingectomy, evacuation of hemoperitoneum which she tolerated well. She was observed overnight and met discharge criteria on POD#1. She will follow up in 2 weeks in the office. Condition at discharge: Stable Disposition: DC- TO HOME OR SELFCARE - Discharge Diagnoses (1) Status: Acute Qualifiers: Weeks of gestation: less than 8 weeks Qualified Code(s): Z3A.01 - Less than 8 weeks gestation of (2) Nausea & vomiting Status: Acute Qualifiers: Vomiting type: unspecified Vomiting Intractability: non-intractable Qualified Code(s): R11.2 - Nausea with vomiting, unspecified (3) Acute abdominal pain Status: Acute (4) Ovarian cyst Status: Acute Qualifiers: Laterality: right Qualified Code(s): N83.201 - Unspecified ovarian cyst, right side (5) Status post laparoscopic procedure Status: Acute Plan - Discharge Medications Prescriptions: Docusate Sodium [Colace] 100 mg PO BID PRN #60 capsule PRN Reason: Constipation Metoclopramide [Reglan] 10 mg PO TID PRN #30 tab PRN Reason: Nausea oxyCODONE /ACETAMINOPHEN [Percocet 5/325] 2 tab PO Q4H PRN #40 tablet PRN Reason: Pain - Provider Discharge Summary Activity: routine, no sex for 6 weeks, no heavy lifting 4 weeks, no strenuous exercise Diet: routine Instructions: routine Additional instructions: [] Smoking cessation referral if applicable(refer to patient education folder for contact #) [] Refer to [facility]'s [facility] Booklet Call your doctor immediately for: * Fever > 100.5 * Heavy vaginal bleeding ( >1 pad per hour) * Severe persistent headache * Shortness of breath * Reddened, hot, painful area to leg or breast * Drainage or odor from incision. * Keep incision clean and dry at all times and follow doctor's instructions regarding bathing/showering - Follow up plan Follow up: PRIMARY CAREMD [Primary Care Provider] - 7 Days FCO RAUSCH MD [Staff Physician] - 06/12/17 (PLEASE CALL OFFICE GTO SCHEDULE APPT )
[2017-06-02] MEDS: PRENATAL VITAMIN PO SCH (10:11)
[2017-06-02] MEDS: PEPCID IV SCH (10:12)
[2017-06-02 10:43] LABS: Hematocrit 33.6 % (30.3-42.9)
[2017-06-02 13:10] VITALS: BP 114/71
--- NOTE | 2017-06-12 14:06 | Query- General ---
Dear ____Reed Date:___06/12/17 Fiscal Services Director/CDS:___[place] / [place] Phone#:__[phone] Exercise your independent professional judgment when responding to this query. Questions asked do not imply a particular answer is desired or expected. We greatly appreciate your clarification on this issue. Clinical Documentation States: 37 year female was admitted on 05/31/17 The discharge summary (Dr. Mcbride) states " Reason for admission: other ( pelvic pain, nausea, ovarian cyst, 7 wks ) Discharge diagnosis: other (7 wks , right ovarian cyst, pelvic pain, nausea and vomiting ) - Discharge Diagnoses (1) Weeks of gestation: less than 8 weeks " Clinical Findings Show (include reference to source document): The pathology report states " Fallopian tube, clinically "right ovarian cyst" , salpingectomy: fallopian tube with intraluminal chorionic villi consistent with ectopic " Given the above clinical scenario can you please provide an appropriate diagnosis based on your knowledge of the patient: PHYSICIAN RESPONSE: [ X ] Ectopic present [ ] Ectopic not present [ X ] Other(Please specify) _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 She has laparoscopic right salpingectomy on 06/01/17 which removed ectopic . Remainig IUP was viable after surgery, but lost heart beat so is now a missed . She will have suction dilation and curettage on 06/14/17 to treat missed . Present on Admission: [ X] Yes (Y) [ ] Clinically undeterminable (W) [ ]No(N) Please also document response in your Progress Notes and/or Discharge Summary and indicate if the condition was present on admission. PANCHO
== END 2017-06-02 14:15 | disposition home or self-care (01) | DRG 777 ==
LOC: 3A 10:31 → UNDOADMIN 10:31 → OB 10:58
PROVIDERS: ADMIT Obstetrics & Gynecology; ATTEND Obstetrics & Gynecology
PROC: 0UB04ZZ Excision of Right Ovary, Percutaneous Endoscopic Approach (ICD-10-PCS; principal; 2017-06-01)
PROC: 10T24ZZ Resection of Products of Conception, Ectopic, Percutaneous Endoscopic Approach (ICD-10-PCS; 2017-06-01)
PROC: 0UB54ZZ Excision of Right Fallopian Tube, Percutaneous Endoscopic Approach (ICD-10-PCS; 2017-06-01)
DX: O00.101 Right tubal pregnancy without intrauterine pregnancy (principal); O16.1 Unspecified maternal hypertension, first trimester; O34.81 Maternal care for other abnormalities of pelvic organs, first trimester; N83.201 Unspecified ovarian cyst, right side; Z3A.01 Less than 8 weeks gestation of pregnancy; K21.9 Gastro-esophageal reflux disease without esophagitis; O99.611 Diseases of the digestive system complicating pregnancy, first trimester; Z88.8 Allergy status to other drugs, medicaments and biological substances; O21.0 Mild hyperemesis gravidarum
CPT/HCPCS: 36415; 76801; 76815; 76817; 80048; 80053; 80074; 81001; 82150; 83690; 84443; 84702; 84703; 85014; 85018; 85025; 85610; 85730; 86850; 86900; 86901; 88304; 88305; 96361; 96374; 96375; 96376; 99406; A4217; J0330; J1170; J1580; J1885; J2270; J2405; J2704; J2765; J3010; J7030; J7120; J7121

== ENCOUNTER 2017-06-11 18:47 | Observation (INO) | payer MEDICAID ==
[2017-06-11 19:39] LABS: Basophils % (Auto) 0.7 % (0.0-1.8); Eosinophils % (Auto) 2.5 % (0.0-4.3); Hematocrit 38.1 % (30.3-42.9); Hemoglobin 12.8 gm/dl (10.1-14.3); Mean Corpuscular HGB Conc 34 % (30-34); Mean Corpuscular Hemoglobin 31 pg (28-32); Mean Corpuscular Volume 93 fl (79-97); Platelet Count 390 K/mm3 (140-440); Red Blood Count 4.09 M/mm3 (3.65-5.03); Red Cell Distribution Width 13.5 % (13.2-15.2); White Blood Count 8.3 K/mm3 (4.5-11.0)
--- NOTE | 2017-06-11 19:48 | Emergency Department Report ---
HPI - General Chief Complaint: Urogenital-Female Time Seen by Provider: 06/11/17 19:40 - HPI HPI: Room 24 The patient is a 37-year-old female presenting with a chief complaint of abdominal pain. The patient had a history of ectopic as well as intrauterine simultaneously. Patient had right salpingectomy [address] Shira Mcbride. The patient states she was in the office 3 days ago and an ultrasound was unable to detect cardiac activity. The patient states she is being scheduled for "surgery." Patient denies vaginal bleeding or passing tissue vaginally Location: Lower pelvis Duration: One day Quality: Pain/contractions Severity:03/05 Modifying factors: [see above] Context: [see above] Mode of transportation: [not driving] ED Past Medical Hx - Past Medical History Previous Medical History?: Yes Hx Hypertension: Yes (no meds, has been low resently) Hx Headaches / Migraines: Yes (MIGRAINES) - Surgical History Past Surgical History?: Yes Hx Cholecystectomy: Yes Additional Surgical History: Right salpingectomy 06/01/2017 secondary to ectopic - Family History Family history: no significant - Social History Smoking Status: Current Every Day Smoker Substance Use Type: None - Medications Home Medications: Home Medications Medication Instructions Recorded Confirmed Last Taken Type Ranitidine HCl [Ranitidine 300mg 1 tab PO DAILY 10/14/14 05/31/17 1 Week Ago History Cap] ~01/16/15 Ferrous Sulfate [Feosol 325 MG tab] 325 mg PO BID #60 tablet 01/25/15 05/31/17 Unknown Rx Labetalol [Normodyne TAB] 100 mg PO BID #60 tablet 01/25/15 05/31/17 Unknown Rx HYDROcodone/APAP 5-325 [[place] 1 each PO Q6HR PRN #30 tablet 06/20/15 05/31/17 Unknown Rx 5/325] Ibuprofen [Motrin 600 MG tab] 600 mg PO Q8H PRN #30 tablet 06/20/15 05/31/17 Unknown Rx Multivitamin with Iron 1 each PO DAILY #30 tablet 06/20/15 05/31/17 Unknown Rx [Multivitamins with Iron] Gentamicin 0.3% Ophth Soln 2 drops OP Q8H #1 bottle 11/27/15 05/31/17 Unknown Rx Sulfamethoxazole/Trimethoprim 1 each PO BID #20 tablet 05/17/17 05/31/17 Unknown Rx [Bactrim DS TAB] Docusate Sodium [Colace] 100 mg PO BID PRN #60 capsule 06/02/17 Unknown Rx Metoclopramide [Reglan] 10 mg PO TID PRN #30 tab 06/02/17 Unknown Rx oxyCODONE /ACETAMINOPHEN [Percocet 2 tab PO Q4H PRN #40 tablet 06/02/17 Unknown Rx 5/325] ED Review of Systems ROS: Stated complaint: 8 WEEKS PREG MISCARRIAGE Other details as noted in HPI Gastrointestinal: abdominal pain Genitourinary: denies: abnormal menses Physical Exam - Physical Exam Vital Signs: Vital Signs 06/11/17 18:57 Temperature 98.3 F Pulse Rate 108 H Respiratory 20 Rate Blood Pressure 154/80 O2 Sat by Pulse 100 Oximetry Physical Exam: GENERAL: The patient is well-developed well-nourished female kneeling in wheelchair appearing to be in moderate discomfort. [] HEENT: Normocephalic. Atraumatic. Extraocular motions are intact. Patient has moist mucous membranes. NECK: Supple. Trachea midline CHEST/LUNGS: Clear to auscultation. There is no respiratory distress noted. HEART/CARDIOVASCULAR: Regular. There is no tachycardia. There is no gallop rub or murmur. ABDOMEN: Abdomen is soft, with suprapubic tenderness SKIN: There is no rash. There is no edema. There is no diaphoresis. NEURO: The patient is awake, alert, and oriented. The patient is cooperative. The patient has normal speech MUSCULOSKELETAL: There is no evidence of acute injury. PELVIC: No blood in the vaginal vault. Os appears closed ED Course Vital Signs 06/11/17 18:57 Temperature 98.3 F Pulse Rate 108 H Respiratory 20 Rate Blood Pressure 154/80 O2 Sat by Pulse 100 Oximetry - Consultations Consultation #1: 06/11/17 19:[address] Jack-recommends ultrasound. Okay with the administration of pain medication Consultation #2: 06/11/17 21:10 Dr. Jack paged 06/11/17 21:[address] Jack-Will admit the patient ED Medical Decision Making - Lab Data Result diagrams: 06/11/17 19:16 Laboratory Tests 06/11/17 06/11/17 06/11/17 19:16 19:20 19:24 WBC 8.3 RBC 4.09 Hgb 12.8 Hct 38.1 MCV 93 MCH 31 MCHC 34 RDW 13.5 Plt Count 390 Lymph % (Auto) 41.0 H Coal % (Auto) 6.6 Eos % (Auto) 2.5 Baso % (Auto) 0.7 Lymph # 3.4 Coal # 0.6 Eos # 0.2 Baso # 0.1 Seg Neutrophils % 49.2 Seg Neutrophils # 4.1 HCG, Quant 98789 H Urine Color Urine Turbidity Urine pH Ur Specific [place] Urine Protein Urine Glucose (UA) Urine Ketones Urine Blood Urine Nitrite Urine Bilirubin Urine Urobilinogen Ur Leukocyte Esterase Urine WBC (Auto) Urine RBC (Auto) U Epithel Cells (Auto) Urine Mucus Blood Type O POSITIVE 06/11/17 20:49 WBC RBC Hgb Hct MCV MCH MCHC RDW Plt Count Lymph % (Auto) Coal % (Auto) Eos % (Auto) Baso % (Auto) Lymph # Coal # Eos # Baso # Seg Neutrophils % Seg Neutrophils # HCG, Quant Urine Color Yellow Urine Turbidity Clear Urine pH 7.0 Ur Specific [place] 1.015 Urine Protein <15 mg/dl Urine Glucose (UA) Neg Urine Ketones Neg Urine Blood Sm Urine Nitrite Neg Urine Bilirubin Neg Urine Urobilinogen < 2.0 Ur Leukocyte Esterase Sm Urine WBC (Auto) 17.0 H Urine RBC (Auto) 4.0 U Epithel Cells (Auto) < 1.0 Urine Mucus Few Blood Type - Radiology Data Radiology results: report reviewed (pelvic ultrasound), image reviewed (pelvic ultrasound) FINAL REPORT PROCEDURE: US OB lt; = 14 WEEKS FETUS TECHNIQUE: Real-time transabdominal sonography of the uterus, placenta, amniotic fluid, adnexa, and fetus was performed with image documentation. Measurements were obtained to determine age/size. M-mode Doppler was used to document heartbeat. CPT 10909 HISTORY: abd pain, no cardiac activity on last us COMPARISON: Transvaginal OB ultrasound also performed today. FINDINGS: The report for this exam was generated using images from both the transabdominal and transvaginal OB ultrasound both of which were performed today. There is a single intrauterine gestation visualized. Despite persistent imaging no heartbeat is seen consistent with intrauterine demise. The crown-rump length measurement is 15.7 millimeters corresponding to an age of 8 weeks 0 days. Fetus currently is too small to evaluate anatomy. No gross abnormality is identified. No evidence of subchorionic hemorrhage. Shape of the gestational sac appears normal. The amount of amniotic fluid appears normal. Right and left ovaries are visualized and show no abnormalities. IMPRESSION: A single intrauterine gestation is visualized. Despite persistent imaging no heartbeat is seen consistent with intrauterine demise. By crown-rump length measurement the estimated age is 8 weeks 0 days. Transcribed By: DFN Dictated By: MARIE MCKINNEY MD Electronically Authenticated By: MARIE MCKINNEY MD Signed Date/Time: 06/11/171703 DD/ 03 TD/TT: 06/11/171703 - Differential Diagnosis spontaneous , inevitable , demise Critical care attestation.: If time is entered above; I have spent that time in minutes in the direct care of this critically ill patient, excluding procedure time. ED Disposition Clinical Impression: demise Disposition: 09 OP ADMIT IP TO THIS HOSP Is pt being admited?: Yes Does the pt Need Aspirin: No Condition: Fair Time of Disposition: 21:23
[2017-06-11] MEDS ORDERED: DILAUDID IV ONE ×2 (19:50→21:19)
[2017-06-11] MEDS ORDERED: ZOFRAN IV ONE (19:50)
[2017-06-11] MEDS ORDERED: DILAUDID ONE ×2 (20:02→22:05)
[2017-06-11 21:06] LABS: Bilirubin,Urine NEG (Negative); Blood,Urine SM (Negative); Ketones,Urine NEG (Negative); Leukocyte Esterase,Urine SM (Negative); Mucus,Urine FEW /HPF; Nitrite,Urine NEG (Negative); Protein,Urine <15 mg/dL mg/dL (Negative); Urobilinogen,Urine < 2.0 mg/dL (<2.0)
--- NOTE | 2017-06-11 21:07 | Ultrasound Report ---
FINAL REPORT PROCEDURE: US OB < = 14 WEEKS FETUS TECHNIQUE: Real-time transabdominal sonography of the uterus, placenta, amniotic fluid, adnexa, and fetus was performed with image documentation. Measurements were obtained to determine age/size. M-mode Doppler was used to document heartbeat. CPT 31715 HISTORY: abd pain, no cardiac activity on last us COMPARISON: Transvaginal OB ultrasound also performed today. FINDINGS: The report for this exam was generated using images from both the transabdominal and transvaginal OB ultrasound both of which were performed today. There is a single intrauterine gestation visualized. Despite persistent imaging no heartbeat is seen consistent with intrauterine demise. The crown-rump length measurement is 15.7 millimeters corresponding to an age of 8 weeks 0 days. Fetus currently is too small to evaluate anatomy. No gross abnormality is identified. No evidence of subchorionic hemorrhage. Shape of the gestational sac appears normal. The amount of amniotic fluid appears normal. Right and left ovaries are visualized and show no abnormalities. IMPRESSION: A single intrauterine gestation is visualized. Despite persistent imaging no heartbeat is seen consistent with intrauterine demise. By crown-rump length measurement the estimated age is 8 weeks 0 days.
--- NOTE | 2017-06-11 21:08 | Ultrasound Report ---
FINAL REPORT PROCEDURE: US OB TRANSVAGINAL TECHNIQUE: Real-time transvaginal sonography of the uterus, placenta, amniotic fluid, adnexa, and fetus was performed with image documentation. Measurements were obtained to determine age/size. M-mode Doppler was used to document heartbeat. CPT 21805 HISTORY: abd pain, no cardiac activity on last us COMPARISON: Transabdominal OB ultrasound performed earlier today. FINDINGS: The report for this exam was generated using images from both the transabdominal and transvaginal OB ultrasound both of which were performed today. There is a single intrauterine gestation visualized. Despite persistent imaging no heartbeat is seen consistent with intrauterine demise. The crown-rump length measurement is 15.7 millimeters corresponding to an age of 8 weeks 0 days. Fetus currently is too small to evaluate anatomy. No gross abnormality is identified. No evidence of subchorionic hemorrhage. Shape of the gestational sac appears normal. The amount of amniotic fluid appears normal. Right and left ovaries are visualized and show no abnormalities. IMPRESSION: A single intrauterine gestation is visualized. Despite persistent imaging no heartbeat is seen consistent with intrauterine demise. By crown-rump length measurement the estimated age is 8 weeks 0 days.
[2017-06-11] MEDS: D5LR 1,000 ML IV SCH (23:31)
[2017-06-12] MEDS: MORPHINE IV PRN ×3 (03:03→08:15)
[2017-06-12] MEDS: ZOFRAN IV PRN ×2 (03:09→15:00)
[2017-06-12] MEDS: D5LR 1,000 ML IV SCH (07:07)
--- NOTE | 2017-06-12 09:39 | History and Physical Report ---
History of Present Illness Date of examination: 06/12/17 Date of admission: 06/11/17 21:50 Chief complaint: abdominal pain History of present illness: Pt is a 37 year old -[place] female with h/o heterotopic s/p laparoscopic right salpingectomy on 7 with subsequent missed of IUP at 8 wks. Pt reports that she ran out of medication after her visit in the office on 06/08/17 and she presented the ED for pain control. She denies vaginal bleeding. Past History Past Medical History: hypertension, GERD Past Surgical History: cholecystectomy, [employer]/uterine surgery (partial right salpingectomy in 2014; right salpingectomy in 2016 ), other (umbilical hernia repair) [employer] History: herpes Social history: no significant social history - Obstetrical History : 7 Medications and Allergies Allergies Allergy/AdvReac Type Severity Reaction Status Date / Time cephalexin monohydrate Allergy Rash Verified 06/11/17 19:05 [From Keflex] latex Allergy Itching Verified 06/11/17 19:05 Home Medications Medication Instructions Recorded Confirmed Last Taken Type Ranitidine HCl [Ranitidine 300mg 1 tab PO DAILY 10/14/14 06/12/17 1 Week Ago History Cap] ~01/16/15 Ferrous Sulfate [Feosol 325 MG tab] 325 mg PO BID #60 tablet 01/25/15 06/12/17 Unknown Rx Labetalol [Normodyne TAB] 100 mg PO BID #60 tablet 01/25/15 06/12/17 Unknown Rx HYDROcodone/APAP 5-325 [[place] 1 each PO Q6HR PRN #30 tablet 06/20/15 06/12/17 Unknown Rx 5/325] Ibuprofen [Motrin 600 MG tab] 600 mg PO Q8H PRN #30 tablet 06/20/15 06/12/17 Unknown Rx Multivitamin with Iron 1 each PO DAILY #30 tablet 06/20/15 06/12/17 Unknown Rx [Multivitamins with Iron] Gentamicin 0.3% Ophth Soln 2 drops OP Q8H #1 bottle 11/27/15 06/12/17 Unknown Rx Sulfamethoxazole/Trimethoprim 1 each PO BID #20 tablet 05/17/17 06/12/17 Unknown Rx [Bactrim DS TAB] Docusate Sodium [Colace] 100 mg PO BID PRN #60 capsule 06/02/17 06/12/17 Unknown Rx Metoclopramide [Reglan] 10 mg PO TID PRN #30 tab 06/02/17 06/12/17 Unknown Rx oxyCODONE /ACETAMINOPHEN [Percocet 2 tab PO Q4H PRN #40 tablet 06/02/17 Unknown Rx 5/325] Ibuprofen [Motrin] 800 mg PO Q8HR PRN #30 tablet 06/12/17 Unknown Rx Ondansetron [Zofran ODT TAB] 8 mg PO Q12H PRN #30 06/12/17 Unknown Rx oxyCODONE /ACETAMINOPHEN [Percocet 1 tab PO Q6HR PRN #30 tablet 06/12/17 Unknown Rx 5/325] Active Meds: Active Medications Dextrose/Lactated Ringer's (D5lr) 1,000 mls @ 125 mls/hr IV DIRECT CLIFF Last Admin: 06/12/17 07:07 Dose: 125 mls/hr Ibuprofen (Motrin) 800 mg PO Q8H PRN PRN Reason: Pain, Mild (1-3) Ondansetron HCl (Zofran) 4 mg IV Q8H PRN PRN Reason: Nausea Stop: 06/13/17 21:29 Last Admin: 06/12/17 03:09 Dose: 4 mg Oxycodone/Acetaminophen (Percocet 5/325) 2 tab PO Q4H PRN PRN Reason: Pain, Moderate (4-6) Review of Systems All systems: negative - Vital Signs Vital signs: Vital Signs Temp Pulse Resp BP Pulse Ox 98.3 F 108 H 20 154/80 100 06/11/17 18:57 06/11/17 18:57 06/11/17 18:57 06/11/17 18:57 06/11/17 18:57 Temp Pulse Resp BP Pulse Ox 98.5 F 68 16 117/71 99 06/12/17 08:00 06/12/17 08:00 06/12/17 08:00 06/12/17 08:00 06/12/17 08:00 - Physical Exam Breasts: Positive: deferred Cardiovascular: Regular rate Lungs: Positive: Clear to auscultation Abdomen: Positive: soft, normal bowel sounds. Negative: guarding Extremities: Positive: normal Results Result Diagrams: 12/17/17 19:16 Abnormal lab results 06/11/17 06/11/17 06/11/17 Range/Units 19:16 19:24 20:49 Lymph % (Auto) 41.0 H (13.4-35.0) % HCG, Quant 94030 H (0-4) mIU/mL Urine WBC (Auto) 17.0 H (0.0-6.0) /HPF All other labs normal. Assessment and Plan A: Missed at 8 wks s/p laparoscopic right salpingectomy for treatment of ruptured ectopic on 06/01/17 P: Admit for observation and IV pain medication as needed.
[2017-06-12] MEDS ORDERED: PERCOCET 5/325 PO PRN (11:00)
[2017-06-12] MEDS ORDERED: MOTRIN PO PRN (11:00)
[2017-06-12 14:07] VITALS: BP 123/83
--- NOTE | 2017-06-12 14:17 | Progress Note ---
Assessment and Plan A: Missed at 8 wks s/p laparoscopic right salpingectomy for treatment of ruptured ectopic on 06/01/17 P:Discharge home on PO Motrin and Percocet. Pt will present on Mon06/14/17 for suction dilation and curettage. Subjective - Subjective Date of service: 06/12/17 Principal diagnosis: Missed at 8 wks, Abdominal pain Interval history: Pt's pain is much improved on Motrin and Percocet. She continues to deny vaginal bleeding. Pt's suction dilation and curettage has been scheduled for . Patient reports: voiding normally, pain well controlled, flatus, bowel movement (yesterday ) Objective - Vital Signs Latest vital signs: Vital Signs Temp Pulse Resp BP BP Pulse Ox 06/12/17 11:54 97.9 F 73 18 123/83 98 06/12/17 08:00 98.5 F 68 16 117/71 99 06/12/17 04:30 98.6 F 66 16 103/72 06/11/17 22:45 98.6 F 68 18 112/71 06/11/17 22:43 18 100 06/11/17 22:30 112/72 100 06/11/17 22:16 112/72 99 06/11/17 22:10 16 06/11/17 22:00 112/72 100 06/11/17 21:46 110/80 99 06/11/17 21:30 110/80 99 06/11/17 21:16 110/80 100 06/11/17 21:06 110/80 100 06/11/17 20:34 110/80 06/11/17 20:18 20 06/11/17 20:16 96 H 13 110/80 100 06/11/17 20:00 84 18 110/80 100 06/11/17 19:48 86 9 L 06/11/17 18:57 98.3 F 108 H 20 154/80 100 Intake and Output 06/11/17 06/12/17 06/12/17 22:59 06:59 14:59 Intake Total 1430 Balance 1430 Intake: IV 950 D5lr 1,000 ml @ 125 mls/ 950 hr IV DIRECT CLIFF Rx#: [id number] Oral 120 Intake, Free Water 360 Other: Total, Intake Amount 120 Voiding Method Toilet # Voids Void 1 1 Weight 130 kg 130 kg - Exam Breasts: Present: deferred Cardiovascular: Present: Regular rate Lungs: Present: Clear to auscultation Abdomen: Present: soft, normal bowel sounds. Absent: distention, guarding Extremities: Present: normal Incision: Present: intact - Labs Labs: Abnormal lab results 06/11/17 06/11/17 06/11/17 Range/Units 19:16 19:24 20:49 Lymph % (Auto) 41.0 H (13.4-35.0) % HCG, Quant 38200 H (0-4) mIU/mL Urine WBC (Auto) 17.0 H (0.0-6.0) /HPF
--- NOTE | 2017-06-12 14:20 | Short Stay Summary ---
Short Stay Documentation Date of service: 06/12/17 - History H&P: dictated - Allergies and Medications Current Medications: Allergies cephalexin monohydrate [From Keflex] Allergy (Verified 06/11/17 19:05) Rash Keflex=mental disturbances. latex Allergy (Verified 06/11/17 19:05) Itching Home Medications Medication Instructions Recorded Confirmed Last Taken Type Ranitidine HCl [Ranitidine 300mg 1 tab PO DAILY 10/14/14 06/12/17 1 Week Ago History Cap] ~01/16/15 Ferrous Sulfate [Feosol 325 MG tab] 325 mg PO BID #60 tablet 01/25/15 06/12/17 Unknown Rx Labetalol [Normodyne TAB] 100 mg PO BID #60 tablet 01/25/15 06/12/17 Unknown Rx HYDROcodone/APAP 5-325 [[place] 1 each PO Q6HR PRN #30 tablet 06/20/15 06/12/17 Unknown Rx 5/325] Ibuprofen [Motrin 600 MG tab] 600 mg PO Q8H PRN #30 tablet 06/20/15 06/12/17 Unknown Rx Multivitamin with Iron 1 each PO DAILY #30 tablet 06/20/15 06/12/17 Unknown Rx [Multivitamins with Iron] Gentamicin 0.3% Ophth Soln 2 drops OP Q8H #1 bottle 11/27/15 06/12/17 Unknown Rx Sulfamethoxazole/Trimethoprim 1 each PO BID #20 tablet 05/17/17 06/12/17 Unknown Rx [Bactrim DS TAB] Docusate Sodium [Colace] 100 mg PO BID PRN #60 capsule 06/02/17 06/12/17 Unknown Rx Metoclopramide [Reglan] 10 mg PO TID PRN #30 tab 06/02/17 06/12/17 Unknown Rx oxyCODONE /ACETAMINOPHEN [Percocet 2 tab PO Q4H PRN #40 tablet 06/02/17 Unknown Rx 5/325] Ibuprofen [Motrin] 800 mg PO Q8HR PRN #30 tablet 06/12/17 Unknown Rx Ondansetron [Zofran ODT TAB] 8 mg PO Q12H PRN #30 06/12/17 Unknown Rx oxyCODONE /ACETAMINOPHEN [Percocet 1 tab PO Q6HR PRN #30 tablet 06/12/17 Unknown Rx 5/325] Active Medications Dextrose/Lactated Ringer's (D5lr) 1,000 mls @ 125 mls/hr IV DIRECT CLIFF Last Admin: 06/12/17 07:07 Dose: 125 mls/hr Ibuprofen (Motrin) 800 mg PO Q8H PRN PRN Reason: Pain, Mild (1-3) Ondansetron HCl (Zofran) 4 mg IV Q8H PRN PRN Reason: Nausea Stop: 06/13/17 21:29 Last Admin: 06/12/17 03:09 Dose: 4 mg Oxycodone/Acetaminophen (Percocet 5/325) 2 tab PO Q4H PRN PRN Reason: Pain, Moderate (4-6) - Hospital course Hospital course: Pt was admitted for pain control. By the afternoon of HD#1, the patient's pain was well-controlled. She is stable and will have a D&C on Mon06/14/17. - Disposition Condition at discharge: Stable Disposition: DC- TO HOME OR SELFCARE - Discharge Diagnoses (1) Abdominal pain Status: Acute Qualifiers: Abdominal location: lower abdomen, unspecified Qualified Code(s): R10.30 - Lower abdominal pain, unspecified (2) demise Status: Acute Short Stay Discharge Plan Activity: other (Nothing in vagina, no sex ) Weight Bearing Status: Full Weight Bearing Diet: regular Follow up with: SULLY VALLEJO MD [Primary Care Provider] - 3-5 Days FCO RAUSCH MD [Staff Physician] - 06/21/17 (postoperative exam - please call for appt ) Forms: [facility] Discharge Summary Prescriptions: Ibuprofen [Motrin] 800 mg PO Q8HR PRN #30 tablet PRN Reason: Pain Ondansetron [Zofran ODT TAB] 8 mg PO Q12H PRN #30 PRN Reason: Nausea oxyCODONE /ACETAMINOPHEN [Percocet 5/325] 1 tab PO Q6HR PRN #30 tablet PRN Reason: Pain
== END 2017-06-12 16:00 | disposition home or self-care (01) ==
LOC: ED 18:47 → OB 21:50 → INTOOBSV 21:50
PROVIDERS: ADMIT Obstetrics & Gynecology; ATTEND Obstetrics & Gynecology
DX: O02.1 Missed abortion (principal); O16.1 Unspecified maternal hypertension, first trimester; O99.331 Smoking (tobacco) complicating pregnancy, first trimester; O26.891 Other specified pregnancy related conditions, first trimester; G43.909 Migraine, unspecified, not intractable, without status migrainosus; F17.200 Nicotine dependence, unspecified, uncomplicated; K21.9 Gastro-esophageal reflux disease without esophagitis; Z90.49 Acquired absence of other specified parts of digestive tract; Z88.8 Allergy status to other drugs, medicaments and biological substances; Z91.040 Latex allergy status; Z3A.08 8 weeks gestation of pregnancy
CPT/HCPCS: 36415; 76801; 76817; 81001; 84702; 85025; 86850; 86900; 86901; 96361; 96374; 96375; 96376; 99285; G0378; J1170; J2270; J2405; J7121

== ENCOUNTER 2017-06-14 09:52 | Day surgery (SDC) | payer MEDICAID, OTHER ==
--- NOTE | 2017-06-14 10:02 | History and Physical Report ---
History of Present Illness Date of examination: 06/12/17 Chief complaint: Missed History of present illness: Pt is a 37 year old -[place] female diagnosed with a heterotopic s/p laparoscopic right partial salpingectomy on 06/01/17 for treatment of ruptured ectopic , now with missed at 8 wks of intrauterine . Pt desires surgical management. Past History Past Medical History: hypertension, GERD Past Surgical History: [employer]/uterine surgery, other (hernia repair, ) [employer] History: herpes Family/Genetic History: none Social history: no significant social history - Obstetrical History : 8 Medications and Allergies Allergies Allergy/AdvReac Type Severity Reaction Status Date / Time cephalexin monohydrate Allergy Rash Verified 06/11/17 19:05 [From Keflex] latex Allergy Itching Verified 06/11/17 19:05 Home Medications Medication Instructions Recorded Confirmed Last Taken Type Ranitidine HCl [Ranitidine 300mg 1 tab PO DAILY 10/14/14 06/13/17 1 Week Ago History Cap] ~01/16/15 Ibuprofen [Motrin] 800 mg PO Q8HR PRN #30 tablet 06/12/17 06/13/17 Unknown Rx Ondansetron [Zofran ODT TAB] 8 mg PO Q12H PRN #30 06/12/17 06/13/17 Unknown Rx oxyCODONE /ACETAMINOPHEN [Percocet 1 tab PO Q6HR PRN #30 tablet 06/12/17 Unknown Rx 5/325] Active Meds: Active Medications Doxycycline Hyclate 100 mg/ (Sodium Chloride) 250 mls @ 250 mls/hr IV ONCE ONE PRN Reason: Protocol Stop: 06/14/17 10:59 Review of Systems All systems: negative - Physical Exam Breasts: Positive: deferred Cardiovascular: Regular rate Lungs: Positive: Clear to auscultation Abdomen: Positive: soft, tenderness (appropriately tender after laparoscopy ) Extremities: Positive: normal Results All other labs normal. Assessment and Plan A: Heterotopic s/p laparoscopic right salpingectomy to treat ruptured ectopic Now with missed at 8 wks of IUP Hypertension GERD P: Proceed with suction dilation and curettage and other indicated procedures.
[2017-06-14 10:51] LABS: Hematocrit 37.7 % (30.3-42.9); Hemoglobin 12.8 gm/dl (10.1-14.3); Mean Corpuscular HGB Conc 34 % (30-34); Mean Corpuscular Hemoglobin 31 pg (28-32); Mean Corpuscular Volume 91 fl (79-97); Platelet Count 372 K/mm3 (140-440); Red Blood Count 4.12 M/mm3 (3.65-5.03); White Blood Count 5.8 K/mm3 (4.5-11.0)
[2017-06-14] MEDS ORDERED: LACTATED RINGERS 1,000 ML IV SCH (11:00)
--- NOTE | 2017-06-14 11:09 | Anesthesia Consultation ---
Anesthesia Consult and Med Hx Date of service: 06/14/17 - Airway Anesthetic Teeth Evaluation: Good ROM Head & Neck: Adequate Mental/Hyoid Distance: Adequate Mallampati Class: Class I Intubation Access Assessment: Good - Pulmonary Exam CTA: Yes - Cardiac Exam Cardiac Exam: RRR - Pre-Operative Health Status ASA Pre-Surgery Classification: ASA2 Proposed Anesthetic Plan: General - Pulmonary Hx Smoking: Yes (CIGARETTES 6 CIGS PD FOR 5 YRS) - Cardiovascular System Hx Hypertension: Yes (no meds, has been low resently) - Central Nervous System Hx Psychiatric Problems: Yes - Gastrointestinal Hx Gastroesophageal Reflux Disease: Yes - Other Systems Hx Cancer: No
--- NOTE | 2017-06-14 11:09 | Anesthesia Day of Surgery ---
Anesthesia Day of Surgery - Day of Surgery Patient Examined: Yes Patient H&P Reviewed: Yes Patient is NPO: Yes
[2017-06-14] MEDS ORDERED: MORPHINE IV PRN (11:13)
[2017-06-14] MEDS ORDERED: ZOFRAN IV PRN (11:13)
[2017-06-14] MEDS ORDERED: PERCOCET 5/325 PO PRN (11:13)
[2017-06-14] MEDS: DILAUDID IV NR ×3 (11:45→14:35)
[2017-06-14] MEDS ORDERED: DILAUDID IV ONE (12:00)
[2017-06-14] MEDS ORDERED: DECADRON 12 MG in NACL 0.9% 50 ML IV NR (12:00)
[2017-06-14] MEDS ORDERED: PEPCID IV NR (12:00)
[2017-06-14] MEDS ORDERED: VERSED IV NR (12:00)
[2017-06-14] MEDS ORDERED: DOXYCYCLINE HYCLATE 100 MG in NACL 0.9% 250ML 250 ML IV ONE (12:00)
[2017-06-14] MEDS ORDERED: SILVER NITRATE TP ONE ×2 (13:16→13:56)
[2017-06-14] MEDS ORDERED: METHERGINE IM ONE ×2 (13:16→13:56)
[2017-06-14] MEDS ORDERED: SUBLIMAZE ONE (13:30)
[2017-06-14] MEDS ORDERED: DIPRIVAN 10 MG/ML IV ONE ×2 (13:30→13:57)
[2017-06-14] MEDS ORDERED: XYLOCAINE MPF 2% ONE (13:45)
[2017-06-14] MEDS ORDERED: ZOFRAN ONE (13:46)
[2017-06-14] MEDS ORDERED: NACL 0.9% IR ONE (13:57)
--- NOTE | 2017-06-14 14:24 | Operative Report ---
Operative Report Operative Report: Date of procedure: June 14, 2017 Preoperative diagnosis: Missed at 8 weeks Postoperative diagnosis: Same Procedure: Suction dilation and curettage Surgeon: Shira Mcbride M.D. Anesthesia: General with LMA Findings: Small anteverted uterus EBL: 200 mL Urine output: 100 mL, clear prior to the procedure IV fluid: 550 mL Specimen: Products of conception to pathology Drains: None Consultations: None, counts correct 2 Medications: Methergine 0.2 mg IM Disposition: Stable to PACU Indication for procedure: Patient is a 37 year-old female 8 para 0343 who presents for surgical management of missed at 8 wks. Operation in detail: After the risks, benefits, alternatives, and complication of the procedure was recommended to the patient, she gave informed consent for the procedure. She was subsequently taken to the operating room with IV noted to be running well and placed in the dorsal supine position. Gen. anesthesia was then induced without difficulty. The patient was then placed in the dorsal lithotomy position and prepped and draped in the normal sterile fashion. A timeout was performed. An exam under anesthesia was performed yielding the small anteverted uterus. The bladder was drained of 100 ml of clear urine. An open sided bivalve speculum was placed into the vagina for adequate visualization of the cervix. A single-tooth tenaculum was placed on the anterior lip of the cervix. The cervix was sequentially dilated with Landon dilators to a #23. A #8 curved rigid curet was used to perform a suction curettage. A sharp curette was used to ensure that all quadrants were gritty 4. The products of conception were sent to pathology. Subsequently Methergine 0.2 mg IM was administered. At this time the single-tooth tenaculum was removed from the cervix and the puncture sites are noted to be hemostatic. All instruments were removed from the vagina and the procedure was ended. The patient was then placed into dorsal supine position and extubated without difficulty. She was subsequently taken to the PACU in stable condition. The patient tolerated the procedure well. All counts were correct 2.
[2017-06-14] MEDS ORDERED: DILAUDID IV PRN (14:25)
--- NOTE | 2017-06-14 14:27 | Short Stay Summary ---
Short Stay Documentation Date of service: 06/14/17 - History H&P: dictated Social history: no significant social history - Allergies and Medications Current Medications: Allergies cephalexin monohydrate [From Keflex] Allergy (Verified 06/11/17 19:05) Rash Keflex=mental disturbances. latex Allergy (Verified 06/11/17 19:05) Itching Home Medications Medication Instructions Recorded Confirmed Last Taken Type Ranitidine HCl [Ranitidine 300mg 1 tab PO DAILY 10/14/14 06/13/17 1 Week Ago History Cap] ~01/16/15 Ibuprofen [Motrin] 800 mg PO Q8HR PRN #30 tablet 06/12/17 06/14/17 06/01/17 Rx Ondansetron [Zofran ODT TAB] 8 mg PO Q12H PRN #30 06/12/17 06/14/17 06/13/17 Rx oxyCODONE /ACETAMINOPHEN [Percocet 1 tab PO Q6HR PRN #30 tablet 06/12/1706/14/17 03:30 Rx 5/325] Active Medications Famotidine (Pepcid) 20 mg IV PREOP NR Stop: 06/14/17 23:00 Last Admin: 06/14/17 11:35 Dose: 20 mg Hydromorphone HCl (Dilaudid) 0.5 mg IV ONCE NR Stop: 06/14/17 23:59 Last Admin: 06/14/17 11:45 Dose: 0.5 mg Lactated Ringer's (Lactated Ringers) 1,000 mls @ 100 mls/hr IV DIRECT CLIFF Last Admin: 06/14/17 11:00 Dose: 100 mls/hr Dexamethasone 12 mg/ Sodium (Chloride) 53 mls @ 100 mls/hr IV PREOP NR Stop: 06/14/17 23:00 Last Admin: 06/14/17 12:03 Dose: 100 mls/hr Midazolam HCl (Versed) 2 mg IV PREOP NR Stop: 06/14/17 23:59 Last Admin: 06/14/17 11:30 Dose: 2 mg Morphine Sulfate (Morphine) 2 mg IV Q10MIN PRN PRN Reason: Pain, Moderate (4-6) Ondansetron HCl (Zofran) 4 mg IV ONCE PRN PRN Reason: Nausea And Vomiting Oxycodone/Acetaminophen (Percocet 5/325) 1 tab PO ONCE PRN PRN Reason: Pain, Moderate (4-6) - Physical exam Breasts: deferred - Brief post op/procedure progress note Date of procedure: 06/14/17 Pre-op diagnosis: Missed Post-op diagnosis: same Procedure: Suction Dilation and Curettage Anesthesia: GETA Findings: Small anteverted uterus with closed cervix Surgeon: FCO RAUSCH Estimated blood loss: other (200 mL) Pathology: list (products of conception) Specimen disposition: to lab Condition: stable - Hospital course Hospital course: Pt tolerated suction dilation and curettage well. She was observed in the PACU until she met discharge criteria. - Disposition Condition at discharge: Stable Disposition: DC- TO HOME OR SELFCARE - Discharge Diagnoses (1) Missed Status: Acute Short Stay Discharge Plan Activity: other (Nothing in vagina and no baths x 4 wks ) Weight Bearing Status: Full Weight Bearing Diet: regular Additional Instructions: Some vaginal bleeding is expected, sometimes with clots or tissue. Please call your doctor if you are completely filling up one pad per hour for two consecutive hours. Follow up with: SULLY VALLEJO MD [Primary Care Provider] - 7 Days FCO RAUSCH MD [Staff Physician] - 06/21/17 (Please call for appt- postoperative exam ) Prescriptions: Bisacodyl [Dulcolax suppos] 10 mg NM QDAY PRN #7 supp.rect PRN Reason: Constipation Doxycycline Hyclate [Doxycycline Hyclate TAB] 100 mg PO Q12HR #14 tab Methylergonovine Maleate [Methergine] 0.2 mg PO Q8H #6 tablet Ondansetron [Zofran TAB] 4 mg PO Q12H PRN #30 tablet PRN Reason: Nausea
[2017-06-14 15:49] VITALS: BP 117/72
== END 2017-06-14 16:31 | disposition home or self-care (01) ==
LOC: OR 09:52
PROVIDERS: ATTEND Obstetrics & Gynecology
DX: O02.1 Missed abortion (principal); I10 Essential (primary) hypertension; K21.9 Gastro-esophageal reflux disease without esophagitis; M06.9 Rheumatoid arthritis, unspecified; F41.9 Anxiety disorder, unspecified; F17.210 Nicotine dependence, cigarettes, uncomplicated; Z91.040 Latex allergy status; Z88.1 Allergy status to other antibiotic agents; Z98.890 Other specified postprocedural states; Z3A.08 8 weeks gestation of pregnancy
CPT/HCPCS: 36415; 59820; 85027; 86850; 86900; 86901; 88305; J1100; J1170; J2210; J2250; J2270; J2405; J2704; J3010; J7050; J7120

== ENCOUNTER 2017-10-23 19:25 | Emergency (ER) | payer MEDICAID ==
[2017-10-23 19:49] VITALS: BP 157/101
[2017-10-23 20:26] LABS: Hematocrit 39.3 % (30.3-42.9); Hemoglobin 13.4 gm/dl (10.1-14.3); Mean Corpuscular HGB Conc 34 % (30-34); Mean Corpuscular Hemoglobin 31 pg (28-32); Mean Corpuscular Volume 90 fl (79-97); Platelet Count 312 K/mm3 (140-440); Red Blood Count 4.36 M/mm3 (3.65-5.03); Red Cell Distribution Width 14.3 % (13.2-15.2)
[2017-10-23 20:29] LABS: Bacteria,Urine 1+ /HPF (Negative); Bilirubin,Urine NEG (Negative); Blood,Urine MOD (Negative); Color,Urine Yellow (Yellow); Mucus,Urine FEW /HPF; Protein,Urine <15 mg/dL mg/dL (Negative); Urobilinogen,Urine < 2.0 mg/dL (<2.0)
[2017-10-23 20:33] LABS: BUN/Creatinine Ratio 13; Blood Urea Nitrogen 10 mg/dL (7-17); Calcium 8.7 mg/dL (8.4-10.2); Hemolysis Index 14
[2017-10-23 20:51] LABS: HCG Qualitative,Urine Negative (Negative)
== END 2017-10-23 20:06 | disposition left against medical advice (07) ==
LOC: ED 19:25
DX: R10.9 Unspecified abdominal pain (principal); Z53.21 Procedure and treatment not carried out due to patient leaving prior to being seen by health care provider
CPT/HCPCS: 36415; 80048; 81001; 81025; 85027

== ENCOUNTER 2018-01-31 11:13 | Emergency (ER) | payer MEDICAID | END 2018-01-31 11:37 | disposition left against medical advice (07) | LOC: ED 11:13 | DX: M79.1 Myalgia (principal); Z53.21 Procedure and treatment not carried out due to patient leaving prior to being seen by health care provider ==

== ENCOUNTER 2020-10-23 02:53 | Observation (INO) | payer MEDICAID ==
[2020-10-23] MEDS ORDERED: SODIUM CHLORIDE 0.9% 1000 ML 1,000 ML IV ONE (03:36)
[2020-10-23] MEDS ORDERED: HYDROmorphone 1 MG/1 ML INJ IV ONE ×4 (03:36→05:32)
[2020-10-23] MEDS ORDERED: ONDANSETRON 4 MG/2 ML INJ IV ONE (03:37)
--- NOTE | 2020-10-23 03:40 | Emergency Department Report ---
ED Female HPI - General Chief complaint: Vaginal Bleeding Stated complaint: PELVIC PAIN/BLEEDING AFTER SURGERY Time Seen by Provider: 10/23/20 03:36 Source: patient Mode of arrival: Ambulatory Limitations: No Limitations - History of Present Illness Initial comments: Patient is a 40-year-old female that presents emergency room with complaints of lower abdominal pain and vaginal bleeding. Patient states that she was having intercourse with her and she felt a pop inside of her vagina and began to have profuse vaginal bleeding. Patient states that the pain is a 10 out of 10. Patient states the pain is in her lower abdomen and radiates to her vagina. Patient states the pain is better with rest and worse with movement and palpation. Patient states she had a hysterectomy on 09/09/2020. Patient states her OPENER TENDER is Dr. Saint Linton. Patient states that she just recently was cleared to have sexual activity. Patient denies fever and chills. Patient denies nausea vomiting. Patient denies recent travel. Patient denies recent international travel. Patient denies exposure to the novel coronavirus. Patient denies sick contacts. Patient denies fever and chills. Patient denies cough. Patient denies diarrhea. Patient denies coming in contact with anybody with symptoms of the novel coronavirus. MD Complaint: vaginal bleeding, pelvic pain -: Sudden Location: suprapubic Radiation: other Severity: severe Severity scale (0 -10): 10 Quality: sharp Consistency: constant Worsens with: intercourse, movement Are you Now?: No Associated Symptoms: vaginal bleeding, abdominal pain - Related Data Sexually active: Yes Home Medications Medication Instructions Recorded Confirmed Last Taken Losartan/Hydrochlorothiazide 1 each PO DAILY 09/02/20 09/09/20 09/08/20 [Losartan-Hctz 50-12.5 mg Tab] medroxyPROGESTERone ACETATE 10 mg PO DAILY 09/02/20 09/09/20 09/08/20 [Medroxyprogesterone Acetate] propranoloL [Inderal] 10 mg PO ONCE PRN 09/02/20 09/09/20 09/09/20 06:00 Diclofenac Sodium 75 mg PO DAILY PRN 09/07/20 09/09/20 08/12/20 Docusate Sodium [Stool Softener] 50 mg PO DAILY PRN 09/07/20 09/09/20 09/08/20 Naproxen [Naprosyn] 500 mg PO BID PRN 09/07/20 09/09/20 08/29/20 HYDROcodone/APAP 5-325 [[place] 1 each PO Q4HR PRN 09/09/20 09/09/20 09/08/20 13:00 5/325] Omeprazole 20 mg PO QDAY 09/09/20 09/09/20 09/09/20 06:00 Previous Rx's Medication Instructions Recorded Last Taken Type Docusate Sodium [Colace] 100 mg PO BID PRN #60 capsule 09/11/20 Unknown Rx Ibuprofen [Motrin 800 MG tab] 800 mg PO Q8HR PRN #30 tablet 09/11/20 Unknown Rx oxyCODONE /ACETAMINOPHEN [Percocet 1 tab PO Q6HR PRN #40 tablet 09/11/20 Unknown Rx 5/325] Allergies Allergy/AdvReac Type Severity Reaction Status Date / Time cephalexin monohydrate Allergy Rash Verified 09/02/20 18:17 [From Keflex] latex Allergy Itching Verified 09/02/20 18:17 ED Review of Systems ROS: Stated complaint: PELVIC PAIN/BLEEDING AFTER SURGERY Other details as noted in HPI Constitutional: denies: chills, fever Eyes: denies: eye pain, eye discharge, vision change ENT: denies: ear pain, throat pain Respiratory: denies: cough, shortness of breath, wheezing Cardiovascular: denies: chest pain, palpitations Endocrine: no symptoms reported Gastrointestinal: as per HPI, abdominal pain. denies: nausea, diarrhea Genitourinary: as per HPI, dyspareunia. denies: urgency, dysuria, discharge Musculoskeletal: denies: back pain, joint swelling, arthralgia Skin: denies: rash, lesions Neurological: denies: headache, weakness, paresthesias Psychiatric: denies: anxiety, depression Hematological/Lymphatic: denies: easy bleeding, easy bruising ED Past Medical Hx - Past Medical History Previous Medical History?: Yes Hx Hypertension: Yes Hx Heart Attack/AMI: No Hx Congestive Heart Failure: No Hx Diabetes: No Hx GERD: Yes Hx Liver Disease: No Hx Renal Disease: No Hx Headaches / Migraines: Yes (MIGRAINES) Hx Asthma: No Hx COPD: No - Surgical History Past Surgical History?: Yes Hx Cholecystectomy: Yes Additional Surgical History: Right salpingectomy 06/01/2017 secondary to ectopic /2017 HETEROSALPINGECTOMY WITH HERNIA REPAIR, hysterectomy - Family History Family history: no significant - Social History Smoking Status: Current Every Day Smoker Substance Use Type: None - Medications Home Medications: Home Medications Medication Instructions Recorded Confirmed Last Taken Type Losartan/Hydrochlorothiazide 1 each PO DAILY 09/02/20 09/09/20 09/08/20 History [Losartan-Hctz 50-12.5 mg Tab] medroxyPROGESTERone ACETATE 10 mg PO DAILY 09/02/20 09/09/20 09/08/20 History [Medroxyprogesterone Acetate] propranoloL [Inderal] 10 mg PO ONCE PRN 09/02/20 09/09/20 09/09/20 06:00 History Diclofenac Sodium 75 mg PO DAILY PRN 09/07/20 09/09/20 08/12/20 History Docusate Sodium [Stool Softener] 50 mg PO DAILY PRN 09/07/20 09/09/20 09/08/20 History Naproxen [Naprosyn] 500 mg PO BID PRN 09/07/20 09/09/20 08/29/20 History HYDROcodone/APAP 5-325 [[place] 1 each PO Q4HR PRN 09/09/20 09/09/20 09/08/20 13:00 History 5/325] Omeprazole 20 mg PO QDAY 09/09/20 09/09/20 09/09/20 06:00 History Docusate Sodium [Colace] 100 mg PO BID PRN #60 capsule 09/11/20 Unknown Rx Ibuprofen [Motrin 800 MG tab] 800 mg PO Q8HR PRN #30 tablet 09/11/20 Unknown Rx oxyCODONE /ACETAMINOPHEN [Percocet 1 tab PO Q6HR PRN #40 tablet 09/11/20 Unknown Rx 5/325] ED Physical Exam - General Limitations: No Limitations General appearance: alert, in no apparent distress - Head Head exam: Present: atraumatic, normocephalic - Eye Eye exam: Present: normal appearance - ENT ENT exam: Present: mucous membranes moist - Neck Neck exam: Present: normal inspection - Respiratory Respiratory exam: Present: normal lung sounds bilaterally. Absent: respiratory distress - Cardiovascular Cardiovascular Exam: Present: regular rate, normal rhythm. Absent: systolic mu rmur, diastolic murmur, rubs, gallop - GI/Abdominal GI/Abdominal exam: Present: soft, tenderness (Lower abdominal tenderness to palpation. Suprapubic tenderness to palpation.), normal bowel sounds - Rectal Rectal exam: Present: deferred - External exam: Present: bleeding Speculum exam: Present: vaginal bleeding, laceration - Extremities Exam Extremities exam: Present: normal inspection - Back Exam Back exam: Present: normal inspection - Neurological Exam Neurological exam: Present: alert, oriented X3 - Psychiatric Psychiatric exam: Present: normal affect, normal mood - Skin Skin exam: Present: warm, dry, intact, normal color. Absent: rash ED Course Vital Signs 10/23/20 10/23/20 10/23/20 02:59 03:53 03:54 Temperature 98.2 F Pulse Rate 106 H 90 96 H Respiratory 18 24 12 Rate Blood Pressure 140/96 129/84 O2 Sat by Pulse 96 98 Oximetry 10/23/20 03:55 Temperature Pulse Rate 96 H Respiratory 11 L Rate Blood Pressure 129/84 O2 Sat by Pulse 97 Oximetry - Reevaluation(s) Reevaluation #1: Initial exam done. Patient will be given Dilaudid for abdominal pain. 10/23/20 03:31 Reevaluation #2: Patient will be given another dose of Dilaudid. 10/23/20 04:31 Reevaluation #3: Ultrasound done and a pelvic exam is done with the nursedanii in the room at all times. Patient complaining of severe pain and will give another dose of Dilaudid. 10/23/20 05:10 Reevaluation #4: I discussed all results with patient. I discussed plan of care with patient. Patient agrees with plan of care and admission. Patient to be admitted to the mother-baby. 10/23/20 05:32 - Consultations Consultation #1: I discussed the case with OPENER TENDER and Dr. Saint Linton recommends admission. 10/23/20 05:31 ED Medical Decision Making - Lab Data Result diagrams: 10/23/20 04:27 10/23/20 04:27 - Radiology Data Radiology results: report reviewed TRANSABDOMINAL PELVIC ULTRASOUND INDICATION / CLINICAL INFORMATION: Vaginal bleeding. COMPARISON: None available. FINDINGS: The uterus and ovaries are surgically absent. No abnormal mass or fluid collection is seen. Images of the urinary bladder are unremarkable. IMPRESSION: Negative study. - Medical Decision Making Patient is a 40-year-old female that presents emergency room with complaints of vaginal bleeding and lower abdominal pain. Patient recently had a hysterectomy. Patient recently had her 6-week follow-up and was recently cleared for sexual activity. Patient was having sex with her and felt a sharp pain and began to bleed profusely. Patient had labs done which were essentially unremarkable. Patient had ultrasound which was negative for acute findings. Patient had a pelvic exam which shows a vaginal laceration and vaginal bleeding. I discussed the case with her OPENER TENDER and she recommended admission. Patient admitted to the hospital for intractable pain. Patient required multiple doses of Dilaudid. Patient admitted to the OPENER TENDER service. Critical care time documented due to the multiple reassessments, prolonged time at the bedside, interpretation of diagnostics and labs. - Differential Diagnosis Vaginal bleeding, vaginal laceration, surgical complication, abdominal bhakti Critical Care Time: Yes Critical care time in (mins) excluding proc time.: 35 Critical care attestation.: If time is entered above; I have spent that time in minutes in the direct care of this critically ill patient, excluding procedure time. Critical Care Time: 35 minutes ED Disposition Clinical Impression: Intractable abdominal pain, Pelvic pain, Vaginal pain, Vaginal bleeding Abdominal pain Qualifiers: Abdominal location: lower abdomen, unspecified Qualified Code(s): R10.30 - Lower abdominal pain, unspecified Disposition: 09 OP ADMIT IP TO THIS HOSP Is pt being admited?: Yes Does the pt Need Aspirin: No Condition: Critical Time of Disposition: 05:29
--- NOTE | 2020-10-23 04:20 | Ultrasound Report ---
TRANSABDOMINAL PELVIC ULTRASOUND INDICATION / CLINICAL INFORMATION: Vaginal bleeding. COMPARISON: None available. FINDINGS: The uterus and ovaries are surgically absent. No abnormal mass or fluid collection is seen. Images of the urinary bladder are unremarkable. IMPRESSION: Negative study. Signer Name: Carlos Garcia MD Signed: 10/23/2020 4:16 AM Workstation Name: [id number]
[2020-10-23 04:55] LABS: Hematocrit 39.6 % (30.3-42.9); Hemoglobin 13.7 gm/dl (10.1-14.3); Mean Corpuscular HGB Conc 35 % (30-34); Mean Corpuscular Volume 94 fl (79-97); Platelet Count 313 K/mm3 (140-440); Red Cell Distribution Width 13.3 % (13.2-15.2)
[2020-10-23 05:36] LABS: BUN/Creatinine Ratio 20; Blood Urea Nitrogen 16 mg/dL (7-17); Calcium 9.4 mg/dL (8.4-10.2); Hemolysis Index 7
[2020-10-23 05:38] LABS: Platelet Estimate Consistent w Auto; RBC Morphology Normal; Total Cells Counted 100
[2020-10-23] MEDS ORDERED: ONDANSETRON 4 MG/2 ML INJ IV PRN ×2 (07:30→13:44)
[2020-10-23] MEDS: MORPHINE 4 MG/1 ML INJ IV PRN ×3 (07:42→21:33)
[2020-10-23] MEDS ORDERED: D5W/LACTATED RINGERS 1,000 ML IV SCH (08:00)
[2020-10-23] MEDS ORDERED: MORPHINE 4 MG/1 ML INJ IV NR (08:18)
--- NOTE | 2020-10-23 08:27 | Short Stay Summary ---
Short Stay Documentation Date of service: 10/23/20 Narrative H&P: 40y/o BF presents with vaginal bleeding and pain after having intercourse. The patient is 6 weeks status post a MALIK. She reports a pop during intercourse and extreme pain. Pelvic ultrasound in ED unremarkable. - History Principal diagnosis: Vaginal bleeding and pain Past Surgical History: Other ([facility]) Social history: - Allergies and Medications Current Medications: Allergies cephalexin monohydrate [From Keflex] Allergy (Verified 09/02/20 18:17) Rash Keflex=mental disturbances. latex Allergy (Verified 09/02/20 18:17) Itching Home Medications Medication Instructions Recorded Confirmed Last Taken Type Losartan/Hydrochlorothiazide 1 each PO DAILY 09/02/20 09/09/20 09/08/20 History [Losartan-Hctz 50-12.5 mg Tab] medroxyPROGESTERone ACETATE 10 mg PO DAILY 09/02/20 09/09/20 09/08/20 History [Medroxyprogesterone Acetate] propranoloL [Inderal] 10 mg PO ONCE PRN 09/02/20 09/09/20 09/09/20 06:00 History Docusate Sodium [Stool Softener] 50 mg PO DAILY PRN 09/07/20 09/09/20 09/08/20 History Naproxen [Naprosyn] 500 mg PO BID PRN 09/07/20 09/09/20 08/29/20 History RX: Diclofenac Sodium 75 mg PO DAILY PRN 09/07/20 09/09/20 08/12/20 History HYDROcodone/APAP 5-325 [[place] 1 each PO Q4HR PRN 09/09/20 09/09/20 09/08/20 13:00 History 5/325] RX: Omeprazole 20 mg PO QDAY 09/09/20 09/09/20 09/09/20 06:00 History Docusate Sodium [Colace] 100 mg PO BID PRN #60 capsule 09/11/20 Unknown Rx RX: Ibuprofen [Motrin 800 MG tab] 800 mg PO Q8HR PRN #30 tablet 09/11/20 Unknown Rx oxyCODONE /ACETAMINOPHEN [Percocet 1 tab PO Q6HR PRN #40 tablet 09/11/20 Unknown Rx 5/325] Active Medications Dextrose/Lactated Ringer's (D5lr) 1,000 mls @ 125 mls/hr IV DIRECT CLIFF Last Admin: 10/23/20 07:42 Dose: 125 mls/hr Documented by: Morphine Sulfate (Morphine 4 Mg/1 Ml Inj) 4 mg IV Q3H PRN PRN Reason: Pain , Severe (7-10) Last Admin: 10/23/20 07:42 Dose: 4 mg Documented by: Morphine Sulfate (Morphine 4 Mg/1 Ml Inj) 4 mg IV ONCE NR Stop: 10/23/20 10:00 Last Admin: 10/23/20 08:23 Dose: 4 mg Documented by: Ondansetron HCl (Ondansetron 4 Mg/2 Ml Inj) 4 mg IV Q4H PRN PRN Reason: Nausea And Vomiting Last Admin: 10/23/20 07:42 Dose: 4 mg Documented by: - Physical exam General appearance: other (moderate distress) Integumentary: no rash HEENT: Atraumatic Lungs: Clear to auscultation Breasts: deferred Heart: Regular rate - Brief post op/procedure progress note Date of procedure: 10/23/20 Pre-op diagnosis: Vaginal bleeding and pain Post-op diagnosis: other (Vaginal cuff dehiscence) Procedure: Repair of vaginal cuff dehiscence Anesthesia: KIMMIEA Surgeon: MICHELLE MISTRY Estimated blood loss: 50-100ml Pathology: none Condition: stable - Hospital course Hospital course: Patient was admitted from the ED for vaginal pain and bleeding after int ercourse. Patient found to have dehiscence of her vaginal cuff. She was taken for repair. Postoperatively the patient did well - Disposition Condition at discharge: Good Disposition: DC-01 TO HOME OR SELFCARE Short Stay Discharge Plan Activity: other (pelvic rest for 6 weeks) Diet: regular Additional Instructions: schedule followup with dr Carter in 4 weeks Prescriptions: Docusate Sodium [Colace] 100 mg PO BID PRN #30 capsule PRN Reason: Constipation Ibuprofen [Motrin] 800 mg PO Q8HR PRN #60 tablet PRN Reason: Pain , Severe (7-10) Oxycodone HCl/Acetaminophen [Percocet 10/325 mg] 1 each PO Q6HR PRN #30 tablet PRN Reason: Pain
--- NOTE | 2020-10-23 11:14 | Anesthesia Day of Surgery ---
Anesthesia Day of Surgery - Day of Surgery Patient Examined: Yes Patient H&P Reviewed: Yes Patient is NPO: Yes
--- NOTE | 2020-10-23 11:14 | Anesthesia Consultation ---
Anesthesia Consult and Med Hx Date of service: 10/23/20 - Airway Anesthetic Teeth Evaluation: Good ROM Head & Neck: Adequate Mental/Hyoid Distance: Adequate Mallampati Class: Class II Intubation Access Assessment: Probably Good - Pre-Operative Health Status ASA Pre-Surgery Classification: ASA2 Proposed Anesthetic Plan: General, MAC - Pulmonary Hx Smoking: Yes (3 cig per day) Hx Asthma: No Hx Respiratory Symptoms: No COPD: No Hx Pneumonia: No - Cardiovascular System Hx Hypertension: Yes Hx Heart Attack/AMI: No Hx Percutaneous Transluminal Coronary Angioplasty (PTCA): No Hx Cardia Arrhythmia: No - Central Nervous System Hx Neuromuscular Disorder: No (rheumatoid arthritis and ankylosing spodylitis; off steroids x 1 month) Hx Psychiatric Problems: Yes (anxiety (propanolol prn)) - Gastrointestinal Hx Gastroesophageal Reflux Disease: Yes - Endocrine Hx Renal Disease: No Hx End Stage Renal Disease: No Hx Liver Disease: No Hx Insulin Dependent Diabetes: No Hx Non-Insulin Dependent Diabetes: No Hx Thyroid Disease: No - Other Systems Hx Alcohol Use: Yes (Occas) Hx Cancer: No - Additional Comments Anesthesia Medical History Comments: vaginal bleeding and pain after intercoarse
[2020-10-23] MEDS ORDERED: propofoL 200 MG/20 ML VIAL IV ONE (12:38)
[2020-10-23] MEDS ORDERED: HYDROmorphone 1 MG/1 ML INJ ONE (12:38)
[2020-10-23] MEDS ORDERED: LIDOCAINE MPF (2%) 20 MG/1 ML VIAL 5 ML ONE (12:39)
[2020-10-23] MEDS ORDERED: CLINDAMYCIN IV ONE (13:32)
[2020-10-23] MEDS ORDERED: GENTAMICIN 40 MG/ML VIAL 2 ML ONE (13:32)
[2020-10-23] MEDS ORDERED: SODIUM CHLORIDE 0.9% 100 ML ONE (13:36)
[2020-10-23] MEDS ORDERED: ROCURONIUM 50 MG/5 ML INJ IV ONE (13:38)
[2020-10-23] MEDS ORDERED: HYDROmorphone 1 MG/1 ML INJ IV PRN (13:44)
[2020-10-23] MEDS ORDERED: SODIUM CHLORIDE 0.9% IRR 1,500 ML BOTTLE IR ONE (13:47)
[2020-10-23] MEDS ORDERED: NEOSTIGMINE 10MG/10 ML INJ MDV ONE (14:17)
[2020-10-23] MEDS ORDERED: ONDANSETRON 4 MG/2 ML INJ ONE (14:17)
[2020-10-23] MEDS ORDERED: KETOROLAC 30 MG/1 ML INJ ONE (14:17)
[2020-10-23] MEDS ORDERED: GLYCOPYRROLATE 0.4 MG/2 ML INJ ONE ×2 (14:17)
[2020-10-23] MEDS ORDERED: SODIUM CHLORIDE 0.9% 1000 ML 1,000 ML ONE ×2 (14:18)
--- NOTE | 2020-10-23 14:27 | Operative Report ---
Operative Report Operative Report: Date of procedure: October 23, 2020 Pre-operative diagnosis: Vaginal pain and bleeding Post-operative diagnosis: Vaginal cuff dehiscence Procedure name(s): Repair of vaginal cuff dehiscence Surgeon: Ofelia Arango M.D. It Business Process Architect: None Estimated blood loss: 50 mL Anesthesia: General endotracheal anesthesia Findings Vaginal cuff dehiscence at the apex Indication: 40-year-old -0-4-4 who presents to the emergency department with acute vaginal bleeding and pelvic pain. The patient is 6 weeks status post a total abdominal hysterectomy. Her symptoms were precipitated by recent vaginal intercourse. Procedure The patient was taken to the operating room and given general tracheal ane sthesia without complication. She is prepped and draped in a normal sterile fashion. She was placed in high lithotomy position. The patient's name and surgical procedure was verified during the timeout. After emptying the bladder a bivalve speculum was placed in the patient's vagina. There was noted to be copious amounts of peritoneal fluid in the vagina. There was complete dehiscence of the vaginal cuff at the apex. There was noted to be bowel protruding into the vaginal vault. The anterior and posterior edges of the vaginal mucosa were grasped with Allis clamps. A sponge stick was placed through the dehiscence in order to pack the bowel. The vaginal mucosa was reapproximated with 0 Vicryl in interrupted [id number] stitches. The sponge stick was removed. After closure of the midline of the vaginal cuff there was noted to be no active bleeding. The vaginal instruments were then removed. The patient was then successfully extubated and taken to the recovery room in stable condition. All sponge laps and needle counts were correct x2.
[2020-10-23] MEDS ORDERED: ACETAMINOPHEN 325 MG TAB PO PRN (14:28)
[2020-10-23] MEDS ORDERED: KETOROLAC 30 MG/1 ML INJ IV PRN (14:28)
[2020-10-23] MEDS ORDERED: fentaNYL 100 MCG/2 ML INJ ONE (14:31)
[2020-10-23] MEDS: oxyCODONE /ACETAMINOPHEN 5-325MG TAB PO PRN (18:06)
[2020-10-23] MEDS ORDERED: FAMOTIDINE 20 MG TAB PO ONE (21:00)
[2020-10-24] MEDS: oxyCODONE /ACETAMINOPHEN 5-325MG TAB PO PRN ×2 (01:50→08:20)
[2020-10-24 04:25] LABS: Hematocrit 35.8 % (30.3-42.9); Hemoglobin 12.1 gm/dl (10.1-14.3)
[2020-10-24] MEDS: IBUPROFEN 800 MG TAB PO PRN ×2 (05:23→14:12)
--- NOTE | 2020-10-24 10:49 | Progress Note ---
Assessment and Plan - Patient Problems (1) Vaginal cuff dehiscence Current Visit: Yes Status: Acute Plan to address problem: discharge home on pelvic rest Subjective - Subjective Date of service: 10/24/20 Principal diagnosis: Vaginal bleeding and pain Interval history: Patient reports feeling better. Pain is better controlled. She is voiding. Patient reports: appetite normal, voiding normally, pain well controlled Objective - Vital Signs Latest vital signs: Vital Signs Temp Pulse Pulse Resp Resp BP BP 10/24/20 07:56 98.2 F 76 18 119/68 10/24/20 06:23 18 10/24/20 05:48 98.9 F 81 18 105/65 10/24/20 05:23 18 10/24/20 02:50 18 10/24/20 01:50 18 10/24/20 01:38 98.9 F 101 H 20 108/70 10/23/20 23:22 18 10/23/20 22:52 18 10/23/20 22:03 18 10/23/20 21:42 18 10/23/20 21:33 18 10/23/20 20:00 80 18 10/23/20 19:37 98.1 F 102 H 20 94/71 10/23/20 19:06 18 10/23/20 16:33 98.3 F 98 H 15 119/74 10/23/20 16:00 98.1 F 98 H 15 124/76 10/23/20 15:50 94 H 14 128/75 10/23/20 15:35 98.5 F 95 H 19 109/75 10/23/20 15:20 96 H 20 130/82 10/23/20 15:17 12 10/23/20 15:05 96 H 12 124/83 10/23/20 14:50 100 H 14 125/79 10/23/20 14:45 108 H 13 124/75 10/23/20 14:40 107 H 16 127/73 10/23/20 14:37 99.1 F 108 H 16 113/69 Pulse Ox 10/24/20 07:56 97 10/24/20 06:23 10/24/20 05:48 98 10/24/20 05:23 10/24/20 02:50 10/24/20 01:50 10/24/20 01:38 93 10/23/20 23:22 10/23/20 22:52 04/30/21 22:03 10/23/20 21:42 10/23/20 21:33 10/23/20 20:00 10/23/20 19:37 95 10/23/20 19:06 10/23/20 16:33 98 10/23/20 16:00 96 10/23/20 15:50 96 10/23/20 15:35 96 10/23/20 15:20 100 10/23/20 15:17 10/23/20 15:05 100 10/23/20 14:50 100 10/23/20 14:45 99 10/23/20 14:40 100 10/23/20 14:37 100 Intake and Output 10/23/20 10/24/20 10/24/20 22:59 06:59 14:59 Intake Total 540 240 Output Total 650 600 Balance -110 -360 Intake: Oral 540 240 Output: Urine 650 600 Void 450 600 Other: Total, Intake Amount 240 240 Total, Output Amount 200 500 Voiding Method Toilet # Voids 1 Void 1
[2020-10-24] MEDS ORDERED: MAGNESIUM HYDROXIDE (MOM) ORAL LIQD UDC PO PRN (11:45)
[2020-10-24 15:32] VITALS: BP 140/84
== END 2020-10-24 15:35 | disposition home or self-care (01) ==
LOC: ED 02:53 → OB 05:27
PROVIDERS: ADMIT Obstetrics & Gynecology; ATTEND Obstetrics & Gynecology
DX: T81.32XA Disruption of internal operation (surgical) wound, not elsewhere classified, initial encounter (principal); N89.8 Other specified noninflammatory disorders of vagina; N93.9 Abnormal uterine and vaginal bleeding, unspecified; R10.2 Pelvic and perineal pain
CPT/HCPCS: 36415; 57200; 76856; 80048; 85014; 85018; 85025; 86850; 86900; 86901; 96361; 96374; 96375; 96376; 99291; G0378; J1170; J1580; J1885; J2270; J2405; J2704; J2710; J3010; J7030; J7121; 85007